=== PATIENT | female | born 1955 | race Caucasian/White ===

== ENCOUNTER 2016-03-25 23:46 | Emergency (ER) | payer SELFPAY ==
[~2016-03-25] VITALS: Ht 193 cm; Wt 78.0 kg
[~2016-03-25 23:46] MED LIST: CARI350T29 PO; FLUT16SP17 NASAL; GEMF600T60 PO; HYDR-902 PO; LEVO750T25 PO; PANT40TA4 PO; PRED20 PO
[2016-03-25 23:56] VITALS: Ht 193 cm; Wt 78.0 kg
[2016-03-26] MEDS ORDERED: HYDR-906 PO (19:42)
[2016-03-26] MEDS ORDERED: IBUP800T25 PO (19:42)
[2016-03-26] MEDS ORDERED: NITR-58 PO (19:43)
== END 2016-03-26 03:52 | disposition left against medical advice (07) ==
LOC: E/R 23:46
DX: Z53.21 Procedure and treatment not carried out due to patient leaving prior to being seen by health care provider (principal)

== ENCOUNTER 2016-03-26 16:11 | Emergency (ER) | payer OTHER ==
[~2016-03-26] VITALS: Ht 157.5 cm; Wt 74.0 kg
[2016-03-26 16:12] VITALS: Ht 157.5 cm; Wt 74.0 kg
[2016-03-26] MEDS ORDERED: HYDROmorphONE 1 MG/ML SYG IV STA ×2 (16:43→20:03)
--- NOTE | 2016-03-26 17:44 | ERD ---
ER Documentation Chief Complaint Date/Time DATE: 03/26/16 TIME: 17:40 Chief Complaint pt bib self with c/o right arm pain x 3 days HPI This is a 60-year-old female presenting to the emergency department for right arm pain 1 week. Patient states she has a burning type sensation to right shoulder that radiates upward to neck and down towards right forearm. Patient also states she is having chest pain and palpitations. No history of acute ME or stroke. Denies difficulty breathing or shortness of breath. Denies back pain. Patient states she went to her primary care doctor who told her she might have a mass in her arm or fibromyalgia. Patient has history of breast cancer and required a left breast mastectomy and chemotherapy. Denies weakness or fatigue. No fevers or chills. Denies neck stiffness. No rashes. No laceration or erythema to arm. No injury or fall. No head trauma or head injury. No recent surgery. Patient requesting Dilaudid for pain and states she is allergic to morphine. ROS All systems reviewed and are negative except as per history of present illness. Medications Home Meds Active Scripts Nitrofurantoin Monohyd Macrocr* (Macrobid*) 100 Mg Capsr, 100 MG PO BID for 5 Days, CAP Prov:LAUREN ALANIZ NP 03/26/16 Ibuprofen* (Motrin*) 800 Mg Tab, 800 MG PO Q6, #15 TAB Prov:LAUREN ALANIZ NP 03/26/16 Hydrocodone/Acetaminophen ([place] 5-325 Tablet) 1 Each Tablet, 1 TAB PO Q6H Y for PAIN, #7 TAB Prov:LAUREN ALANIZ NP 03/26/16 Levofloxacin* (Levaquin*) 750 Mg Tablet, 750 MG PO DAILY for 5 Days, TAB Prov:MIGUEL ANGEL ALEXIS 02/12/16 Prednisone (Prednisone) 20 Mg Tab, 40 MG PO DAILY for 7 Days, TAB Prov:MIGUEL ANGEL ALEXIS 02/12/16 Pantoprazole* (Pantoprazole*) 40 Mg Tablet.dr, 40 MG PO DAILY@06 for 30 Days, 3 Refills Prov:MIGUEL ANGEL ALEXIS 02/12/16 Fluticasone Propionate* (Fluticasone Propionate* Nasal) 50 Mcg/[place] - 16 Gm [place].susp, 1 SPRAY NASAL BID, #1 BOTTLE 2 Refills Prov:MIGUEL ANGEL ALEXIS 02/12/16 Reported Medications Carisoprodol* (Carisoprodol*) 350 Mg Tablet, 350 MG PO QHS Y for MUSCLE SPASMS, TAB 02/10/16 Hydrocodone/Acetaminophen ([place] 10-325 Tablet) 1 Each Tablet, 1 EACH PO Q6 Y for PAIN, TAB 02/10/16 Gemfibrozil* (Gemfibrozil*) 600 Mg Tablet, 600 MG PO BID, TAB 12/11/15 Allergies Allergies: Coded Allergies: morphine (Verified Allergy, Mild, rash, 03/26/16) PMhx/Soc History of Surgery: No Anesthesia Reaction: No Hx Neurological Disorder: No Hx Respiratory Disorders: Yes (SOB on exertion, O2 at 3L/min/NC) Hx Cardiac Disorders: No Hx Psychiatric Problems: No Hx Miscellaneous Medical Probl: Yes (breast ca s/p L mastectomy, s/p chemotherapy, insomia) Hx Alcohol Use: No Hx Substance Use: No Hx Tobacco Use: No Physical Exam Vitals Vital Signs Date Time Temp Pulse Resp B/P Pulse Ox O2 Delivery O2 Flow Rate FiO2 03/26/16 20:29 90 97 Room Air 03/26/16 20:04 98.4 72 18 124/72 99 Room Air 03/26/16 16:12 98.3 105 18 115/68 99 Physical Exam Const: Alert, [id number] Head: Atraumatic Eyes: Normal Conjunctiva ENT: Normal External Ears, Nose and Mouth. Neck: Full range of motion..~ No meningismus. Resp: Clear to auscultation bilaterally. No wheezing, rhonchi or crackles. Cardio: Regular rate and rhythm, no murmurs Abd: Soft, non tender, non distended. Normal bowel sounds Skin: No petechiae or rashes Back: No midline or flank tenderness Ext: No cyanosis, or edema Neur: Awake and alert Psych: Normal Mood and Affect Result Diagram: 03/26/16 1720 03/26/16 1720 Results 24 hrs Laboratory Tests Test 03/26/16 17:20 03/26/16 19:24 03/26/16 19:35 Activated Partial Thromboplast Time 26.2Sec Anion Gap 15 Basophils # 0.010^3/ul Basophils % 0.5% Blood Morphology Comment Blood Urea Nitrogen 18mg/dl Calcium Level 9.1mg/dl Carbon Dioxide Level 27mmol/L Chloride Level 104mmol/L Creatinine 0.78mg/dl Eosinophils # 0.110^3/ul Eosinophils % 1.8% Glucose Level 88mg/dl Hematocrit 38.4% Hemoglobin 12.8g/dl INR International Normalized Ratio 1.03 Lymphocytes # 1.610^3/ul Lymphocytes % 28.7% Mean Corpuscular Hemoglobin 28.3pg Mean Corpuscular Hemoglobin Concent 33.4g/dl Mean Corpuscular Volume 84.8fl Mean Platelet Volume 9.0fl Monocytes # 0.410^3/ul Monocytes % 6.6% Neutrophils # 3.510^3/ul Neutrophils % 62.4% Nucleated Red Blood Cells # 0.010^3/ul Nucleated Red Blood Cells % 0.0/100WBC Platelet Count 08427^3/UL Potassium Level 3.7mmol/L Prothrombin Time 13.5Sec Prothrombin Time Ratio 1.1 Red Blood Count 4.5310^6/ul Red Cell Distribution Width 14.4% Sodium Level 142mmol/L Troponin I < 0.012ng/ml White Blood Count 5.610^3/ul Bedside Urine Blood Trace-intact 1+ Bedside Urine Glucose (UA) Negative Negative Bedside Urine Ketones (LAB) Negative Negative Bedside Urine Leukocyte Esterase (L 1+ 1+ Bedside Urine Nitrite (LAB) Negative Negative Bedside Urine Protein (LAB) 1+ 1+ Bedside Urine pH (LAB) 5.5 5.5 Current Medications Medications (Trade) Dose Ordered Sig/Leslye Route PRN Reason Start Time Stop Time Status Last Admin Dose Admin Hydromorphone HCl (Dilaudid) 0.5 mg ONCE STAT IV 03/26/16 16:43 03/26/16 16:44 DC 03/26/16 17:06 Hydromorphone HCl (Dilaudid) 0.5 mg ONCE STAT IV 03/26/16 20:03 03/26/16 20:04 DC 03/26/16 20:08 Procedures/MDM ED COURSE: The patient was stable throughout ED course. I kept the patient and/or family informed of laboratory and diagnostic imaging results throughout the ED course. Laboratory CBC unremarkable CMP unremarkable Troponin <0.012 PT 13.5 PTT 26.2 INR 1.03 Urine dip 1+ protein, trace blood, 1+ leukocyte esterase Imaging Chest x-ray Patient: ADRIÁN CHU : 1955 Age: 60 Sex: F MR #: [id number] DOS: 03/26/161634 Ordering MD: LAUREN ALANIZ NP Location: E/R Room/Bed: PROCEDURE: XR Chest. CLINICAL INDICATION: Chest pain. Arm pain TECHNIQUE: Portable AP erect view of the chest was obtained. COMPARISON: 02/10/2016 FINDINGS: The cardiomediastinal silhouette is within normal limits. The lungs are clear with improved aeration of the lung bases compared to the prior exam. There is no evidence for pleural effusion, pneumothorax or pulmonary vascular congestion. The osseous structures are intact with no evidence for acute abnormality. Multiple clips along the left chest wall and axilla are again noted RPTAT:HJJR IMPRESSION: No evidence for acute intrathoracic pathology with interval resolution of bibasilar subsegmental atelectasis compared to 02/10/2016. X-ray right shoulder Patient: ADRIÁN CHU : 1955 Age: 60 Sex: F MR #: [id number] DOS: 03/26/161634 Ordering MD: LAUREN ALANIZ NP Location: E/R Room/Bed: PROCEDURE: XR shoulder. CLINICAL INDICATION: Pain TECHNIQUE: Three views of the right shoulder were performed. COMPARISON: None available. FINDINGS: There is normal mineralization and alignment. No fracture or osseous lesion is identified. Trace narrowing of the inferior acromioclavicular joint is present. There is minimal degenerative irregularity of the greater tuberosity. The glenohumeral joint appears intact. The soft tissues are unremarkable. RPTAT:HJJR IMPRESSION: 1. 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 2. No acute osseous abnormality of the right shoulder. X-ray cervical spine Patient: ADRIÁN CHU : 1955 Age: 60 Sex: F MR #: [id number] DOS: 03/26/165 Ordering MD: LAUREN ALANIZ NP Location: E/R Room/Bed: PROCEDURE: XR Cervical Spine. CLINICAL INDICATION: Cervical spine pain. TECHNIQUE: AP, lateral and odontoid views of the cervical spine were performed. The images were reviewed on a PACS workstation. COMPARISON: None available FINDINGS: There is 2 mm retrolisthesis of C4 on C5 and C5 on C6. There are small anterior osteophytes with moderate narrowing at C4-5, C5-6 and C6-7. The vertebral body heights are maintained. There is diffuse osteopenia. There is no evidence of fracture or dislocation. There is diffuse mild to moderate arthropathy. There is preservation of the remaining intervertebral disc spaces. There are no abnormal calcifications. The prevertebral soft tissues are normal. No radiopaque foreign bodies are identified. IMPRESSION: 1. Moderate to severe degenerative disc disease at C4-5, C5-6 and C6-7 with grade 1 retrolisthesis C4 on C5 and C5 on C6. 2. Diffuse mild to moderate facet spondylosis. 3. No evidence of acute fracture. EKG: As interpreted by Dr. De La Torre and myself Rate/Rhythm: Normal sinus rhythm with heart rate 89 bpm QRS, ST, T-waves: No changes consistent w/ acute ischemia Impression: No evidence of ischemia or arrhythmia MDM: This is a 60-year-old female presenting to the emergency department for right arm pain 1 week. Describes pain as burning sensation. Has limited flexion due to pain however full extension from shoulder on exam. EKG shows normal sinus rhythm with heart rate 89 bpm as interpreted by . Chest x-ray no evidence for acute intrathoracic pathology with interval resolution of bibasilar subsegmental atelectasis compared to 02/10/2016. Shoulder x-ray trace degenerative osteoarthrosis of the inferior acromioclavicular joint and degenerative irregularity of the greater tuberosity. No acute osseous abnormality of the right shoulder. Cervical spine x-ray moderate to severe degenerative disc disease at C4-5, C5-6 and C6-7 with grade 1 retrolisthesis C4 on C5 and C5 on C6. Diffuse mild to moderate facet spondylosis. No evidence of acute fracture. Low suspicion for acute ME, non-STEMI, lethal arrhythmia, septic arthritis, abscess or sepsis. Patient is appropriate for outpatient management and will be discharged with prescriptions for ibuprofen, Doss and Macrobid. Instructed patient to follow up with PCP in the next 24-48 hours for reassessment. Return to ED for any new or worsening symptoms. Patient verbalizes understanding. All questions answered at discharge. Departure Diagnosis: Primary Impression: Pain of right arm Condition: Stable LAUREN ALANIZ NP Mar 26, 2016 17:44
[2016-03-26 17:56] LABS: BASOPHILS % 0.5 % (0.0-2.0); EOSINOPHILS # 0.1 10^3/ul (0.0-0.5); EOSINOPHILS % 1.8 % (0.0-7.0); HEMATOCRIT 38.4 % (37.0-47.0); HEMOGLOBIN 12.8 g/dl (12.0-16.0); LYMPHOCYTES # 1.6 10^3/ul (0.8-2.9); LYMPHOCYTES % 28.7 % (15.0-51.0); MEAN CORPUSCULAR HEMOGLOBIN 28.3 pg (29.0-33.0); MEAN CORPUSCULAR HGB CONC 33.4 g/dl (32.0-37.0); MEAN CORPUSCULAR VOLUME 84.8 fl (82.0-101.0); MONOCYTE # 0.4 10^3/ul (0.3-0.9); MONOCYTES % 6.6 % (0.0-11.0); NEUTROPHIL # 3.5 10^3/ul (1.6-7.5); NEUTROPHILS % 62.4 % (39.0-77.0); PLATELET COUNT 312 10^3/UL (140-440); RED BLOOD COUNT 4.53 10^6/ul (4.20-5.40); RED CELL DISTRIBUTION WIDTH 14.4 % (11.5-14.5); UNCORRECTED WBC 5.6 10^3/ul (4.8-10.8); WHITE BLOOD COUNT 5.6 10^3/ul (4.8-10.8)
[2016-03-26 18:07] LABS: CONDITION 1
[2016-03-26 18:09] LABS: INR 1.03; PROTIME 13.5 Sec (12.2-14.2); PT RATIO 1.1
[2016-03-26 18:10] LABS: CHLORIDE 104 mmol/L (97-110); PARTIAL THROMBOPLASTIN TIME 26.2 Sec (25.0-35.0)
[2016-03-26 18:11] LABS: POTASSIUM 3.7 mmol/L (3.5-5.1); SODIUM 142 mmol/L (135-144)
[2016-03-26 18:14] LABS: ANION GAP 15 (8-16); BLOOD UREA NITROGEN 18 mg/dl (7-20); CARBON DIOXIDE 27 mmol/L (21-31); CREATININE 0.78 mg/dl (0.44-1.00); GLUCOSE 88 mg/dl (70-220)
[2016-03-26 18:15] LABS: CALCIUM 9.1 mg/dl (8.4-10.2)
[2016-03-26 18:30] LABS: TROPONIN-I < 0.012 ng/ml (0.00-0.12)
--- NOTE | 2016-03-26 19:19 | RADRPT ---
PROCEDURE: XR Chest. CLINICAL INDICATION: Chest pain. Arm pain TECHNIQUE: Portable AP erect view of the chest was obtained. COMPARISON: 02/10/2016 FINDINGS: The cardiomediastinal silhouette is within normal limits. The lungs are clear with improved aeratio n of the lung bases compared to the prior exam. There is no evidence for pleural effusion, pneumoth orax or pulmonary vascular congestion. The osseous structures are intact with no evidence for acute abnormality. Multiple clips along the left chest wall and axilla are again noted RPTAT:HJJR IMPRESSION: No evidence for acute intrathoracic pathology with interval resolution of bibasilar subsegmental ate lectasis compared to 02/10/2016. Physician Mandie Date Time Electronically viewed and signed by Physician Mandie on 03/26/2016 19:18 JR/
--- NOTE | 2016-03-26 19:20 | RADRPT ---
PROCEDURE: XR shoulder. CLINICAL INDICATION: Pain TECHNIQUE: Three views of the right shoulder were performed. COMPARISON: None available. FINDINGS: There is normal mineralization and alignment. No fracture or osseous lesion is identified. Trace zion rowing of the inferior acromioclavicular joint is present. There is minimal degenerative irregulari ty of the greater tuberosity. The glenohumeral joint appears intact. The soft tissues are unremarka ble. RPTAT:HJJR IMPRESSION: 1. Trace degenerative osteoarthrosis of the inferior acromioclavicular joint and degenerative irregu larity of the greater tuberosity. 2. No acute osseous abnormality of the right shoulder. Physician Mandie Date Time Electronically viewed and signed by Physician Mandie on 03/26/2016 19:20 /
--- NOTE | 2016-03-26 19:21 | RADRPT ---
PROCEDURE: XR Cervical Spine. CLINICAL INDICATION: Cervical spine pain. TECHNIQUE: AP, lateral and odontoid views of the cervical spine were performed. The images were re viewed on a PACS workstation. COMPARISON: None available FINDINGS: There is 2 mm retrolisthesis of C4 on C5 and C5 on C6. There are small anterior osteophytes with mo derate narrowing at C4-5, C5-6 and C6-7. The vertebral body heights are maintained. There is diffu se osteopenia. There is no evidence of fracture or dislocation. There is diffuse mild to moderate ar thropathy. There is preservation of the remaining intervertebral disc spaces. There are no abnormal calcifications. The prevertebral soft tissues are normal. No radiopaque foreign bodies are identifie d. IMPRESSION: 1. Moderate to severe degenerative disc disease at C4-5, C5-6 and C6-7 with grade 1 retrolisthesis C4 on C5 and C5 on C6. 2. Diffuse mild to moderate facet spondylosis. 3. No evidence of acute fracture. RPTAT: HGAS .Donald Pleitez MD, Date Time Electronically viewed and signed by .Donald Pleitez MD, on 03/26/2016 19:20 .S/
[2016-03-26 19:23] LABS: URINE BLOOD (Dip) POC Trace-intact (NEGATIVE)
[2016-03-26 19:33] LABS: URINE BLOOD (Dip) POC 1+ (NEGATIVE)
[2016-03-26] MEDS ORDERED: HYDR-906 PO (19:42)
[2016-03-26] MEDS ORDERED: IBUP800T25 PO (19:42)
[2016-03-26] MEDS ORDERED: NITR-58 PO (19:43)
[2016-03-26 20:04] VITALS: BP 124/72; RESP 18; TEMP 98.4
[2016-03-26 20:29] VITALS: PULSE 90
== END 2016-03-26 20:29 | disposition home or self-care (01) ==
LOC: E/R 16:11
DX: M79.601 Pain in right arm (principal); Z85.3 Personal history of malignant neoplasm of breast
CPT/HCPCS: 36415; 71010; 72040; 73030; 80048; 81003; 84484; 85025; 85610; 85730; 93005; 96374; 96376; J1170; Z7502

== ENCOUNTER 2016-04-22 17:46 | Inpatient (IN) | payer OTHER ==
[~2016-04-22] VITALS: Ht 160 cm; Wt 79.3 kg
[2016-04-22] MEDS: SOD CHLORIDE 0.45% 1,000 ML IV SCH (00:30)
[~2016-04-22 17:46] MED LIST changes: +HYDR-906 PO; +IBUP800T25 PO; +NITR-58 PO
[2016-04-22] MEDS ORDERED: ONDANSETRON 4 MG INJ IV STA (20:11)
[2016-04-22] MEDS ORDERED: HYDROmorphONE 1 MG/ML SYG IV STA (20:11)
[2016-04-22 20:54] LABS: ADD UMIC YES; URINE BILIRUBIN (Dip) NEGATIVE (NEGATIVE); URINE BLOOD (Dip) TRACE (NEGATIVE); URINE COLOR LT. YELLOW (YELLOW); URINE GLUCOSE (Dip) NEGATIVE (NEGATIVE); URINE KETONES (Dip) TRACE (NEGATIVE); URINE LEUKOCYTE ESTERASE (Dip) TRACE (NEGATIVE); URINE NITRITE (Dip) NEGATIVE (NEGATIVE); URINE TOTAL PROTEIN (Dip) NEGATIVE (NEGATIVE); URINE UROBILINOGEN (Dip) 0.2 E.U./dL (0.1-1.0)
--- NOTE | 2016-04-22 20:59 | RADRPT ---
PROCEDURE: CT brain without contrast CLINICAL INDICATION: Weakness. Possible stroke. TECHNIQUE: A CT of the brain was performed utilizing axial sections from the skull base through th e vertex without contrast. Sagittal and coronal images were also reformatted. The exam CTDIvol = 39. 49 mGy and DLP = 554.95 mGy-cm. COMPARISON: None available FINDINGS: No acute intracranial hemorrhage is identified. There is no mass effect or midline shift. No extra -axial fluid collection is seen. The ventricles and sulci are within normal limits for size and con figuration. The density of the brain is within normal limits. Sun-white differentiation is preser alicia. The osseous structures are unremarkable. The mastoid air cells and visualized paranasal sinuses are clear. RPTAT:HJJR IMPRESSION: Unremarkable noncontrast CT of the brain. Physician Mandie Date Time Electronically viewed and signed by Physician Mandie on 04/22/2016 20:59 /
[2016-04-22 21:03] LABS: SQUAMOUS EPITHELIAL CELL,UR FEW; URINE RBCS 0-2 /HPF (0)
[2016-04-22] MEDS ORDERED: IBUP800T25 PO (21:06)
[2016-04-22] MEDS ORDERED: DICL75TA2 PO (21:07)
[2016-04-22] MEDS ORDERED: ZOLP10TA5 PO (21:07)
[2016-04-22] MEDS ORDERED: ALPR0.5T6 PO (21:08)
[2016-04-22 21:15] LABS: BARBITURATES Negative (NEGATIVE)
--- NOTE | 2016-04-22 21:15 | RADRPT ---
PROCEDURE: XR Chest. CLINICAL INDICATION: Possible stroke TECHNIQUE: Single frontal view of the chest was obtained COMPARISON: 03/26/2016 FINDINGS: The heart and mediastinum are within normal limits. The lungs are clear. There is no pleural effusion or pneumothorax. IMPRESSION: No acute disease. RPTAT: [facility] Physician Jose Alfredo Date Time Electronically viewed and signed by Analy Cannon Physician on 04/22/2016 21:15 RS/
[2016-04-22 21:16] LABS: BENZODIAZEPINES Positive (NEGATIVE)
[2016-04-22 21:17] LABS: CANNABINOIDS Negative (NEGATIVE); COCAINE Negative (NEGATIVE)
[2016-04-22 21:18] LABS: OPIATES Negative (NEGATIVE)
[2016-04-22 21:19] LABS: ADD SCAN DIFF NO
[2016-04-22 21:27] LABS: BASOPHIL # 0.1 10^3/ul (0.0-0.1); BASOPHILS % 0.9 % (0.0-2.0); EOSINOPHILS # 0.2 10^3/ul (0.0-0.5); EOSINOPHILS % 3.2 % (0.0-7.0); HEMATOCRIT 46.3 % (37.0-47.0); HEMOGLOBIN 14.4 g/dl (12.0-16.0); LYMPHOCYTES # 2.3 10^3/ul (0.8-2.9); LYMPHOCYTES % 33.1 % (15.0-51.0); MEAN CORPUSCULAR HEMOGLOBIN 27.8 pg (29.0-33.0); MEAN CORPUSCULAR HGB CONC 31.1 g/dl (32.0-37.0); MEAN CORPUSCULAR VOLUME 89.4 fl (82.0-101.0); MEAN PLATELET VOLUME 10.1 fl (7.4-10.4); MONOCYTE # 0.4 10^3/ul (0.3-0.9); MONOCYTES % 5.3 % (0.0-11.0); NEUTROPHIL # 3.9 10^3/ul (1.6-7.5); NEUTROPHILS % 57.1 % (39.0-77.0); PLATELET COUNT 362 10^3/UL (140-415); RED BLOOD COUNT 5.18 10^6/ul (4.20-5.40); RED CELL DISTRIBUTION WIDTH 14.7 % (11.5-14.5); WHITE BLOOD COUNT 6.8 10^3/ul (4.8-10.8)
[2016-04-22 21:30] LABS: CHLORIDE 106 mmol/L (97-110); POTASSIUM 3.4 mmol/L (3.5-5.1); SODIUM 148 mmol/L (135-144)
[2016-04-22] MEDS ORDERED: ASPIRIN 325 MG TAB PO ONE (21:30)
[2016-04-22] MEDS ORDERED: ONDANSETRON 4 MG INJ IV PRN ×2 (21:30→22:30)
[2016-04-22] MEDS ORDERED: ACETAMINOPHEN 325 MG TAB PO PRN ×2 (21:30→22:30)
[2016-04-22 21:31] LABS: INR 0.9; PARTIAL THROMBOPLASTIN TIME 24.6 Sec (25.0-35.0); PROTIME 12.1 Sec (12.2-14.2); PT RATIO 0.9
[2016-04-22 21:33] LABS: ANION GAP 23 (8-16); BLOOD UREA NITROGEN 25 mg/dl (7-20); CARBON DIOXIDE 22 mmol/L (21-31); CREATININE 0.72 mg/dl (0.44-1.00); GLUCOSE 80 mg/dl (70-220)
[2016-04-22 21:34] LABS: CALCIUM 9.6 mg/dl (8.4-10.2)
[2016-04-22 21:45] LABS: TROPONIN-I < 0.012 ng/ml (0.00-0.12)
[2016-04-22] MEDS ORDERED: MAGNESIUM HYDROXIDE 30ML CUP PO PRN (22:30)
[2016-04-22] MEDS ORDERED: NACL 0.9% 3 ML SYG IV SCH (22:30)
--- NOTE | 2016-04-22 22:44 | ERA ---
ER Documentation Chief Complaint Date/Time DATE: 04/22/16 TIME: 22:42 Chief Complaint RT SIDED WEAKNESS & FACIAL DROOP SINCE LAST NIGHT HPI Patient is a 60-year-old female with breast cancer presents with right-sided facial droop and right arm weakness. The patient has a right-sided facial droop. Her symptoms started a couple days ago. 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 A friend told her to go to the ER today. She does complain of headache and right arm pain. Upon review of old medical records this is the patient's fifth visit to the ER since November 2015. ROS All systems reviewed and are negative except as per history of present illness. Medications Home Meds Active Scripts Pantoprazole* (Pantoprazole*) 40 Mg Tablet., 40 MG PO DAILY@06 for 30 Days, 3 Refills Prov:MIGUEL ANGEL ALEXIS 02/12/16 Reported Medications Alprazolam* (Alprazolam*) 0.5 Mg Tablet, 0.5 MG PO BID Y for ANXIETY, TAB 04/22/16 Zolpidem Tartrate* (Zolpidem Tartrate*) 10 Mg Tablet, 10 MG PO QHS Y for INSOMNIA, #30 TAB 04/22/16 Diclofenac Sodium* (Diclofenac Sodium*) 75 Mg Tablet., 75 MG PO Q12, #60 TAB 04/22/16 Ibuprofen* (Ibuprofen*) 800 Mg Tab, 800 MG PO Q6H Y for PAIN, TAB 04/22/16 Carisoprodol* (Carisoprodol*) 350 Mg Tablet, 350 MG PO BID Y for MUSCLE SPASMS, TAB 02/10/16 Gemfibrozil* (Gemfibrozil*) 600 Mg Tablet, 600 MG PO BID, TAB 12/11/15 Discontinued Reported Medications Hydrocodone/Acetaminophen ([place] 10-325 Tablet) 1 Each Tablet, 1 EACH PO Q6 Y for PAIN, TAB 02/10/16 Discontinued Scripts Nitrofurantoin Monohyd Macrocr* (Macrobid*) 100 Mg Capsr, 100 MG PO BID for 5 Days, CAP Prov:LAUREN ALANIZ NP 03/26/16 Ibuprofen* (Motrin*) 800 Mg Tab, 800 MG PO Q6, #15 TAB Prov:LAUREN ALANIZ NP 03/26/16 Hydrocodone/Acetaminophen ([place] 5-325 Tablet) 1 Each Tablet, 1 TAB PO Q6H Y for PAIN, #7 TAB Prov:LAUREN ALANIZ NP 03/26/16 Levofloxacin* (Levaquin*) 750 Mg Tablet, 750 MG PO DAILY for 5 Days, TAB Prov:MIGUEL ANGEL ALEXIS 02/12/16 Prednisone (Prednisone) 20 Mg Tab, 40 MG PO DAILY for 7 Days, TAB Prov:MIGUEL ANGEL ALEXIS 02/12/16 Fluticasone Propionate* (Fluticasone Propionate* Nasal) 50 Mcg/[place] - 16 Gm [place].susp, 1 SPRAY NASAL BID, #1 BOTTLE 2 Refills Prov:MIGUEL ANGEL ALEXIS 02/12/16 Allergies Allergies: Coded Allergies: morphine (Verified Allergy, Mild, rash, 04/22/16) PMhx/Soc History of Surgery: No Anesthesia Reaction: No Hx Neurological Disorder: No Hx Respiratory Disorders: No Hx Cardiac Disorders: No Hx Psychiatric Problems: No Hx Miscellaneous Medical Probl: Yes (breast ca s/p L mastectomy, s/p chemotherapy, insomia) Hx Alcohol Use: No Hx Substance Use: No Hx Tobacco Use: No Smoking Status: Never smoker FmHx Family History: No diabetes Physical Exam Vitals Vital Signs Date Time Temp Pulse Resp B/P Pulse Ox O2 Delivery O2 Flow Rate FiO2 04/22/16 22:34 83 16 113/74 97 Room Air 04/22/16 20:37 Nasal Cannula 2 04/22/16 17:49 98.1 96 16 106/66 94 Physical Exam Const: Mild distress secondary to pain Head: Atraumatic Eyes: Normal Conjunctiva ENT: Normal External Ears, Nose and Mouth. Neck: Full range of motion..~ No meningismus. Resp: Clear to auscultation bilaterally Cardio: Regular rate and rhythm, no murmurs Abd: Soft, non tender, non distended. 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 YELLOW Urine Glucose NEGATIVE% Urine Hemoglobin TRACE Urine Ketones TRACE Urine Leukocyte Esterase TRACE Urine Microscopic RBC 0-2/HPF Urine Microscopic WBC 0-2/HPF Urine Nitrite NEGATIVE Urine Opiates Screen Negative Urine Specific [place] 1.020 Urine Squamous Epithelial Cells FEW Urine Total Protein NEGATIVE Urine Urobilinogen 0.2 E.U./dL Urine pH 5.5 Bedside Glucose 69mg/dL Activated Partial Thromboplast Time 24.6Sec Anion Gap 23 Basophils # 0.110^3/ul Basophils % 0.9% Blood Urea Nitrogen 25mg/dl Calcium Level 9.6mg/dl Carbon Dioxide Level 22mmol/L Chloride Level 106mmol/L Creatinine 0.72mg/dl Eosinophils # 0.210^3/ul Eosinophils % 3.2% Glucose Level 80mg/dl Hematocrit 46.3% Hemoglobin 14.4g/dl Hemoglobin A1c 5.6% INR International Normalized Ratio 0.90 Lymphocytes # 2.310^3/ul Lymphocytes % 33.1% Mean Corpuscular Hemoglobin 27.8pg Mean Corpuscular Hemoglobin Concent 31.1g/dl Mean Corpuscular Volume 89.4fl Mean Platelet Volume 10.1fl Monocytes # 0.410^3/ul Monocytes % 5.3% Neutrophils # 3.910^3/ul Neutrophils % 57.1% Nucleated Red Blood Cells # 0.010^3/ul Nucleated Red Blood Cells % 0.0/100WBC Platelet Count 24407^3/UL Potassium Level 3.4mmol/L Prothrombin Time 12.1Sec Prothrombin Time Ratio 0.9 Red Blood Count 5.1810^6/ul Red Cell Distribution Width 14.7% Sodium Level 148mmol/L Troponin I < 0.012ng/ml White Blood Count 6.810^3/ul Current Medications Medications (Trade) Dose Ordered Sig/Leslye Route PRN Reason Start Time Stop Time Status Last Admin Dose Admin Hydromorphone HCl (Dilaudid) 1 mg ONCE STAT IV 04/22/16 20:11 04/22/16 20:12 DC 04/22/16 20:21 Ondansetron HCl (Zofran Inj) 4 mg ONCE STAT IV 04/22/16 20:11 04/22/16 20:12 DC 04/22/16 20:21 Aspirin (Aspirin) 325 mg ONCE ONCE PO 04/22/16 21:30 04/22/16 21:31 DC 04/22/16 21:36 Ondansetron HCl (Zofran Inj) 4 mg ER BRIDGE PRN IV NAUSEA AND/OR VOMITING 04/22/16 21:30 04/23/16 21:29 Acetaminophen 650 mg 650 mg ER BRIDGE PRN PO MILD PAIN/FEVER 04/22/16 21:30 04/23/16 21:29 Sodium Chloride (1/2 NS) 1,000 ml @ 100 mls/hr Q10H IV 04/22/16 22:29 IV Flush (NS 3 ml) 3 ml PER PROTOCOL IV 04/22/16 22:30 Ondansetron HCl (Zofran Inj) 4 mg Q6H PRN IV NAUSEA AND/OR VOMITING 04/22/16 22:30 Aspirin (Aspirin) 81 mg DAILY PO 04/23/16 09:00 Acetaminophen (Tylenol Tab) 650 mg Q6H PRN PO PAIN LEVEL 1-3 OR FEVER 04/22/16 22:30 Magnesium Hydroxide (Milk Of Mag) 30 ml DAILY PRN PO CONSTIPATION 04/22/16 22:30 Pantoprazole (Protonix Tab) 40 mg DAILY@06 PO 04/23/16 06:00 Procedures/MDM EKG read by me: Rate/Rhythm: Regular rate and rhythm at a rate of 80 Intervals: Normal Impression: No evidence of ischemia or arrhythmia CT brain negative per radiology. Patient is a 60-year-old female presents with right-sided facial droop and right arm weakness. I am concerned for acute stroke. However she is outside the window for TPA. The patient had an NIH stroke scale and bedside swallow evaluation performed. She was given aspirin after CT brain was negative for bleed. I spoke with Dr. Zambrano from [employer] insurance as the patient has [employer] insurance. The patient will be admitted to a telemetry bed. I doubt intracranial hemorrhage or mass. Departure Diagnosis: Primary Impression: Stroke Qualified Code: I63.9 - Cerebrovascular accident (CVA), unspecified mechanism Additional Impression: Acute weakness Condition: ADRIANA Vargas MD Apr 22, 2016 22:44
[2016-04-22 23:52] VITALS: BP 104/58; PULSE 85; RESP 18
[2016-04-23] VITALS (11 sets, daily range): BP systolic 96–118; BP diastolic 54–65; PULSE 75–93; RESP 18–20; Ht 160 cm; Wt 79.3 kg
[2016-04-23] MEDS: ZOLPIDEM 5 MG TAB PO PRN ×2 (01:18→21:03)
[2016-04-23] MEDS: GABAPENTIN 300 MG CAP PO SCH ×3 (01:18→21:03)
[2016-04-23] MEDS: PANTOPRAZOLE (EC) 40 MG TAB PO SCH (06:28)
[2016-04-23 07:49] LABS: ADD SCAN DIFF NO
[2016-04-23 08:00] LABS: BASOPHIL # 0.1 10^3/ul (0.0-0.1); BASOPHILS % 1.1 % (0.0-2.0); EOSINOPHILS # 0.2 10^3/ul (0.0-0.5); EOSINOPHILS % 3.5 % (0.0-7.0); HEMATOCRIT 38.4 % (37.0-47.0); HEMOGLOBIN 11.8 g/dl (12.0-16.0); LYMPHOCYTES # 1.7 10^3/ul (0.8-2.9); LYMPHOCYTES % 36.5 % (15.0-51.0); MEAN CORPUSCULAR HEMOGLOBIN 27.3 pg (29.0-33.0); MEAN CORPUSCULAR HGB CONC 30.7 g/dl (32.0-37.0); MEAN CORPUSCULAR VOLUME 88.7 fl (82.0-101.0); MEAN PLATELET VOLUME 10.3 fl (7.4-10.4); MONOCYTE # 0.4 10^3/ul (0.3-0.9); NEUTROPHIL # 2.3 10^3/ul (1.6-7.5); NEUTROPHILS % 50.5 % (39.0-77.0); PLATELET COUNT 292 10^3/UL (140-415); RED BLOOD COUNT 4.33 10^6/ul (4.20-5.40); RED CELL DISTRIBUTION WIDTH 14.6 % (11.5-14.5); WHITE BLOOD COUNT 4.6 10^3/ul (4.8-10.8)
[2016-04-23 08:01] LABS: ALBUMIN 3.5 g/dl (3.3-4.9)
[2016-04-23 08:02] LABS: POTASSIUM 3.5 mmol/L (3.5-5.1)
[2016-04-23 08:03] LABS: CREATININE 0.78 mg/dl (0.44-1.00)
[2016-04-23 08:04] LABS: ALBUMIN/GLOBULIN RATIO 1.25; BILIRUBIN,INDIRECT 0.2 mg/dl (0-1.1); BILIRUBIN,TOTAL 0.2 mg/dl (0.2-1.3); TOTAL PROTEIN 6.3 g/dl (6.1-8.1)
[2016-04-23 08:05] LABS: CALCIUM 8.7 mg/dl (8.4-10.2)
[2016-04-23] MEDS: ASPIRIN 81 MG TAB PO SCH (08:59)
[2016-04-23] MEDS: SOD CHLORIDE 0.45% 1,000 ML IV SCH ×2 (09:07→18:29)
[2016-04-23] MEDS ORDERED: POTASSIUM CHLORIDE (SR) 20 MEQ TAB PO STA (10:58)
--- NOTE | 2016-04-23 12:10 | HP ---
DATE OF ADMISSION: 04/22/2016 PRIMARY CARE PHYSICIAN: John Whatley MD CHIEF COMPLAINT ON ADMISSION: Right arm pain and right facial droop. HISTORY OF PRESENT ILLNESS: This is a 60-year-old female with history of asthma/reactive airway dis ease, breast cancer survivor, status post left mastectomy and chemotherapy in 2009, who presented to the emergency department with complaint of right arm pain and weakness and also right facial droop. The patient reports that she has been doing fairly well. She has chronic neck pain and apparently some mild right arm discomfort on and off. This is since a fall approximately a year ago. She jus t came back from [place] 5 days ago and since then has been experiencing severe right arm pain and also neck pain. The patient reports that she did not notice any right facial droop until she was o ut with some friends yesterday and they actually mentioned to her that she was drooping on the right side with saliva coming out. She was taken to the emergency department at that time. According to the ER physician, Dr. Akers, the patient did have significant right facial droop. She was also no margaux to have some mild weakness of the right arm. She is complaining mainly of severe pain down the right arm, shooting all the way down to her fingers. It seems to be starting around the right side of her neck, however. She also complains of headaches. She is noted to have a mild right facial dr oop. She denies any fevers, chills, nausea or vomiting. She reports imbalance that has been going on for the past 5 days and generalized weakness. She denies any recent fall. She denies any recent infection or acute illness. She is able to ambulate, just off balance. She denies any chest pain. She denies any shortness of breath. She denies any diarrhea or genitourinary complaints. She rep orts occasional constipation. In the emergency department, she had a CAT scan of the brain which wa s within normal, along with an EKG which is also within normal. She is admitted to a telemetry bed currently and awaiting MRI of the brain and MRI of the cervical spine. ALLERGIES: ALLERGY TO MORPHINE. PAST MEDICAL HISTORY: 1. Asthma/reactive airway disease. 2. Breast cancer diagnosed in 2009, status post chemotherapy as of 2010. 3. Insomnia. 4. Chronic mild right upper extremity pain since a fall approximately a year ago. PAST SURGICAL HISTORY: Status post left mastectomy in 2009 for breast cancer. SOCIAL HISTORY: The patient denies any alcohol, tobacco or IV drug use. REVIEW OF SYSTEMS: As per HPI. OUTPATIENT MEDICATIONS: 1. Soma 350 mg p.o. b.i.d. p.r.n. muscle spasms. 2. Gemfibrozil 600 mg p.o. b.i.d. 3. Alprazolam 0.5 mg p.o. b.i.d. p.r.n. anxiety. 4. Diclofenac sodium 75 mg p.o. q.12h. 5. Ibuprofen 800 mg p.o. q.6h. p.r.n. pain. 6. Ambien 10 mg p.o. at bedtime p.r.n. insomnia. 7. Protonix 40 mg p.o. daily. PHYSICAL EXAMINATION: VITAL SIGNS: Temperature is 98.2, heart rate of 75 sinus rhythm, respiratory rate of 18, blood pres sure 96/54. The patient is satting 94% on room air. GENERAL: She is alert and oriented x4. She is in no acute distress. She is lying in bed comfortab ly, on the phone. HEENT: Pupils are equally round and reactive to light. Extraocular muscles are intact. Anicteric sclerae. She is noted to have a mild right facial droop. NECK: She is complaining of neck pain. No JVD, no thyromegaly noted. HEART: Regular rate and rhythm. No murmur, rubs, or gallops. LUNGS: Clear to auscultation bilaterally. ABDOMEN: Soft, nontender, nondistended. Bowel sounds are present. EXTREMITIES: No edema, clubbing or cyanosis. NEUROLOGIC: Muscle strength is actually 5/5 on my exam; however, the patient does complain of pain down her right arm and around her right side neck during exam. Sensation is intact. Gait is not te sted. Physical therapy will be ordered. LABORATORY DATA: White blood cell count is 4.6, hemoglobin 11.8, hematocrit 38.4, platelet count of 292. Chemistry with a sodium of 143, potassium 3.5, chloride 106, bicarbonate 26, BUN 27, creatini ne 0.78, glucose of 88. Hemoglobin A1c is 5.6. Calcium 8.7, magnesium 2.1. Liver function testing is within normal. TSH is 1.58. Fasting lipid panel will be added. Urine toxicology screen is pos itive for benzodiazepine. Urinalysis shows trace leukocyte esterase. EKG again showing sinus rhythm 74 beats per minute, no acute ST or T wave abnormalities. DIAGNOSTIC DATA: 1. CAT scan of the brain, noncontrast, is unremarkable. 2. Chest x-ray is also unremarkable with no acute disease. 3. MRI brain and MRI cervical spine are pending currently. ASSESSMENT AND PLAN: This is a 60-year-old female with: 1. Right upper extremity weakness reported. She claims that she drops things easily and also right upper extremity pain. This is more consistent with possible neuropathy that may be related to cerv ical spine radiculopathy. MRI of the cervical spine is pending. She does have a mild facial droop. Therefore, MRI of the brain is pending, knowing her history of breast cancer. A 2D echo has been ordered as part of rule out cerebrovascular accident. We will add a fasting lipid panel. Her hemog lobin A1c is within normal. Blood pressure is stable. 2. Asthma, reactive airway disease. Her chest x-ray is within normal. Respiratory status is stabl e. We will continue to monitor. 3. Chronic pain. She is on Soma as needed. 4. Hyperlipidemia. Continue gemfibrozil. 5. Anxiety disorder. Continue alprazolam p.r.n. 6. Insomnia. Continue Ambien p.r.n. 7. Previous history of breast cancer, status post chemotherapy and left mastectomy. 8. Prophylaxis. Continue Protonix for GI prophylaxis. Sequential compression devices to lower ext remities for deep vein thrombosis prophylaxis. DISPOSITION: The patient's MRI of the brain and the cervical spine are pending at this point. We w ill change her admission to observation admission for now pending MRI results. Dictated By: MIGUEL ANGEL VILLASEÑOR/TAYLOR Conf#: [id number] DID#: [id number]
[2016-04-23] MEDS: MAGNESIUM HYDROXIDE 30ML CUP PO PRN ×3 (12:33→21:03)
[2016-04-23] MEDS: HYDROmorphONE 1 MG/ML SYG IV PRN ×2 (12:39→19:12)
--- NOTE | 2016-04-23 15:27 | RADRPT ---
PROCEDURE: MRI Brain without contrast. CLINICAL INDICATION: CVA, right arm weakness and pain. TECHNIQUE: An MRI of the brain was performed utilizing the following sequences: Sagittal and axial T1 weighted, axial T2 weighted, axial diffusion weighted with ADC mapping, coronal GRE, and axial F LAIR. COMPARISON: Brain CT 04/22/2016. FINDINGS: No diffusion weighted abnormalities are seen to suggest the presence of acute ischemia or recent inf arct. No hypointense signal abnormalities are seen on the GRE images to suggest the presence of blo od degradation products. There is no evidence of intracranial hemorrhage, mass effect, or midline s hift. No extra-axial fluid collections are seen. The ventricles and sulci are mildly enlarged indica tive of volume loss. There are mild scattered foci of T2 FLAIR hyperintensity in the periventricular, deep, and subcortic al white matter, which are nonspecific in etiology but likely reflect chronic small vessel ischemic changes. No abnormal intracranial vascular flow void is noted. The visualized paranasal sinuses demonstrate m ild to moderate mucosal thickening or pronounced in ethmoid air cells and maxillary sinuses. IMPRESSION: 1. No acute intracranial hemorrhage, infarction or mass. 2. Mild chronic small vessel ischemic changes. 3. Mild generalized cerebral and cerebellar volume loss. 4. Mild to moderate paranasal sinus disease. RPTAT: HH .Ambika Varner MD, MD Date Time Electronically viewed and signed by .Ambika Varner MD, MD on 04/23/2016 15:27 .N/
--- NOTE | 2016-04-23 21:14 | RADRPT ---
PROCEDURE: MR cervical spine without contrast CLINICAL INDICATION: New onset right arm pain and weakness. Headaches and right shoulder pain TECHNIQUE: An MRI of the cervical spine was performed utilizing sagittal T1 weighted, sagittal T2 weighted, sagittal STIR, axial T2-weighted balance fast field echo and axial GRE. COMPARISON: X-ray 03/26/2016 FINDINGS: Vertebral bodies: Straightening of the normal cervical lordosis is demonstrated. Trace retrolisthe sis of 2 mm C4 relative to C5 and C5 with of the C6 is present. There is preservation of stature an d signal intensity at every level. Anterior spondylosis is most severe at C4-5 and C5-6, moderate a t C6-7 Cervical spinal cord: Normal in signal intensity and caliber at every level. The craniocervical ju nction region is intact. C2-3: The disk is normal in height. No disk bulge or herniation is identified. Moderate left and m ild right facet arthropathy is present with at most mild left foraminal stenosis the right foramen i s patent. There is no central canal stenosis the AP dimension of the canal approximate 11 mm. C3-4: The disk is normal in height. Trace 2 mm posterior disk bulge narrows the anterior subarachno id space but there is no central stenosis the AP dimension of the canal approximately 9 mm. The yue tral canal and foramina are patent. C4-5: Moderate loss of disk stature. An approximately 3 mm osteophyte and disk complex indents the anterior cord and contributes to mild central stenosis the AP dimension of the canal approximately 8 mm. Uncovertebral hypertrophy causes severe left and moderate to severe right foraminal stenosis, mild bilateral facet arthropathy is present. Mild ligamentum flavum hypertrophy is present. C5-6: Moderate loss of disk stature. Osteophyte and disk complex of approximately 4 mm effaces the anterior cord and there is lack of CSF on each side of the cord consistent with moderate to severe c entral stenosis the AP dimension of the canal approximately 5 mm. Uncovertebral hypertrophy causes severe bilateral foraminal stenosis. Mild facet arthropathy is present. Mild ligamentum flavum hyp ertrophy is present. C6-7: Moderate loss of disk stature. 2 mm osteophyte and disk complex narrows the anterior subarach noid space and causes mild central stenosis the AP dimension of the canal 8.7 mm. Uncovertebral hyp ertrophy causes severe left and moderate right foraminal stenosis. C7-T1: There is signal loss with mild loss of disk stature. No disk bulge or herniation is identifi ed. The central canal and foramina are patent. RPTAT:HJJR IMPRESSION: 1. Osteophyte and disk complex causes severe acquired central canal stenosis at C5-6 without signal alteration in the cervical spinal cord, uncovertebral hypertrophy causes severe bilateral narrowing at the C5-6 level. 2. Mild central canal stenosis caused by osteophyte and disk complex at C4-5 and C6-7 with uncovert ebral hypertrophy causing severe left greater than right C4-5 and C6-7 foraminal stenosis. 3. Reversal of the normal cervical lordosis may be from positioning but cannot exclude muscle spasm . Physician Mandie Date Time Electronically viewed and signed by Deven Coburn Physician on 04/23/2016 21:14 JR/
[2016-04-24] VITALS (8 sets, daily range): BP systolic 113–125; BP diastolic 59–63; PULSE 95–110; RESP 20
[2016-04-24] MEDS: HYDROmorphONE 1 MG/ML SYG IV PRN ×4 (01:15→17:28)
--- NOTE | 2016-04-24 02:25 | SP ---
DATE OF PROCEDURE: REFERRING PHYSICIAN: Dr. Zambrano. Thank you for asking me to see the patient with you. HISTORY OF PRESENT ILLNESS: The patient is a 60-year-old lady who has a past medical history of ast hma, breast cancer, insomnia. The patient presented to the emergency room with right upper arm numb ness and pain as well as right facial weakness for which the patient was admitted to [facility], which I got a call about her by her primary care doctor asking me to see her for more evaluation and treatment. MEDICATIOS: Upon admission, her current medications include: 1. Soma 350 mg twice a day. 2. Gemfibrozil 600 mg twice a day 3. Alprazolam 0.5 mg twice a day. 4. Diclofenac 75 mg once a day. 5. Ibuprofen 800 mg as needed. 6. Ambien 10 mg 1 at bedtime for insomnia. 7. Protonix 40 mg once a day. PAST MEDICAL HISTORY: As above, which includes asthma, breast cancer, insomnia. PHYSICAL EXAMINATION: GENERAL: On exam today, the patient is alert, awake, oriented to time, place, and person. Normal s peech and normal language. CRANIAL NERVES: Cranial nerve II: Pupils equal on both sides, reactive to light. Cranial nerves I II, IV, and : Extraocular muscles intact. No nystagmus. Cranial nerve V: Equal sensation to fa ce. Cranial nerve VII: Decreased nasolabial fold on the right side. Cranial nerve VIII: Equal he aring bilaterally. Cranial nerve X: . Cranial nerve XI: Elevates shoulder 5/5. Cranial ner ve XII: With straight tongue. MOTOR: Right upper extremity is 4+/5. Sensation glove and sock area for light touch and temp erature. COORDINATION: Kagvoe-ue-hqle test intact. HEART: Regular rate and rhythm. LUNGS: Equal breath sounds. ABDOMEN: Soft, relaxed, nondistended. No tenderness. ASSESSMENT AND PLAN 1. The patient is 60 years old with a past medical history of hyperlipidemia, possibility of underl chris stroke. We will follow up the patient with MRA to evaluate possible dolichoectasia or vascular abnormality, like aneurysm. We will follow up the patient with MRCP with and without contrast, jennifer laguna for posterior and arterial circulation for more evaluation and treatment. 2. History of chronic anxiety. Keep the patient on Xanax 0.5 mg twice a day as needed. 3. History of dyslipidemia. Keep the patient on Gemfibrozil 600 mg twice a day. 4. Insomnia. Keep the patient on Ambien once at night as needed. We will follow up the patient. Again, thank you for asking me to see the patient with you. Dictated By: JOS STEELE/TAYLOR Conf#: [id number] DID#: [id number]
[2016-04-24] MEDS: SOD CHLORIDE 0.45% 1,000 ML IV SCH ×2 (02:33→14:29)
[2016-04-24] MEDS: PANTOPRAZOLE (EC) 40 MG TAB PO SCH (06:53)
[2016-04-24] MEDS: GABAPENTIN 300 MG CAP PO SCH ×2 (08:37→20:36)
[2016-04-24] MEDS: MAGNESIUM HYDROXIDE 30ML CUP PO PRN (08:37)
[2016-04-24] MEDS: ASPIRIN 81 MG TAB PO SCH (08:37)
--- NOTE | 2016-04-24 10:24 | PN ---
Date/Time of Note Date/Time of Note DATE: 04/24/16 TIME: 10:00 Assessment/Plan VTE Prophylaxis VTE Prophylaxis Intervention: SCD's Lines/Catheters IV Catheter Type (from Nrsg): [place] [employer] line still needed: No Urinary Cath still in place: No Assessment/Plan Assessment/Plan ASSESSMENT AND PLAN: This is a 60-year-old female with: 1. Right upper extremity weakness reported. She claims that she drops things easily and also right upper extremity pain. This is more consistent with possible neuropathy that may be related to cervical spine radiculopathy. MRI of the cervical spine demonstrates: C4-5: Moderate loss of disk stature. An approximately 3 mm osteophyte and disk complex indents the anterior cord and contributes to mild central stenosis the AP dimension of the canal approximately 8 mm. Uncovertebral hypertrophy causes severe left and moderate to severe right foraminal stenosis, mild bilateral facet arthropathy is present. Mild ligamentum flavum hypertrophy is present. C5-6: Moderate loss of disk stature. Osteophyte and disk complex of approximately 4 mm effaces the anterior cord and there is lack of CSF on each side of the cord consistent with moderate to severe central stenosis the AP dimension of the canal approximately 5 mm. Uncovertebral hypertrophy causes severe bilateral foraminal stenosis. Mild facet arthropathy is present. Mild ligamentum flavum hypertrophy is present. Case reviewed with Dr. Lal over the phone and will start decadron for MRI neck findings. MRI of the brain is essentially WNL and no evidence of acute stroke, however, she does have a mild facial droop. A 2D echo has been ordered as part of rule out cerebrovascular accident. Blood pressure is stable. 2. Asthma, reactive airway disease. Her chest x-ray is within normal. Respiratory status is stable. We will continue to monitor. 3. Chronic pain. She is on Soma as needed. 4. Hyperlipidemia. Continue gemfibrozil. 5. Anxiety disorder. Continue alprazolam p.r.n. 6. Insomnia. Continue Ambien p.r.n. 7. Previous history of breast cancer, status post chemotherapy and left mastectomy. 8. Prophylaxis. Continue Protonix for GI prophylaxis. Sequential compression devices to lower extremities for deep vein thrombosis prophylaxis. Subjective 24 Hr Interval Summary Free Text/Dictation complains of OLIVA and ongoing pain in her right arm. Exam/Review of Systems Vital Signs Vitals Vital Signs Date Time Temp Pulse Resp B/P Pulse Ox O2 Delivery O2 Flow Rate FiO2 04/24/16 08:00 105 04/23/16 21:28 98.3 18 118/58 93 Room Air 04/22/16 20:37 2 Intake and Output 04/23/16 04/23/16 04/24/16 15:00 23:00 07:00 Intake Total 550 ml Balance 550 ml Exam Constitutional: alert, oriented Psych: no complaints Head: normocephalic Eyes: nl conjunctiva ENMT: nl external ears & nose, other (right facial droop: mild) Neck: supple Respiratory: clear to auscultation Cardiovascular: regular rate and rhythm Gastrointestinal: soft Musculoskeletal: nl extremities to inspection Extremities: normal pulses Neurological: nl mental status, nl speech, other (right upper extremity 4/5) Results Result Diagram: 04/23/16 0718 04/23/16 0718 Medications Medications Current Medications Sodium Chloride (1/2 NS) 1,000 ml @ 100 mls/hr Q10H IV Last administered on 09:07; Admin Dose 100 MLS/HR; Start 04/22/16 at 22:29 Ondansetron HCl (Zofran Inj) 4 mg Q6H PRN IV NAUSEA AND/OR VOMITING; Start 04/22 at 22:30 Aspirin (Aspirin) 81 mg DAILY PO Last administered on 04/24/16 08:37; Admin Dose 81 MG; Start 04/23/16 at 09:00 Acetaminophen (Tylenol Tab) 650 mg Q6H PRN PO PAIN LEVEL 1-3 OR FEVER Last administered on 04/23/16 16:55; Admin Dose 650 MG; Start 04/22/16 at 22:30 Pantoprazole (Protonix Tab) 40 mg DAILY@06 PO Last administered on 04/24/16 06: 53; Admin Dose 40 MG; Start 04/23/16 at 06:00 Zolpidem Tartrate (Ambien) 5 mg HS PRN PO INSOMNIA Last administered on 21:03; Admin Dose 5 MG; Start 04/23/16 at 00:30 Magnesium Hydroxide (Milk Of Mag) 30 ml Q6H PRN PO CONSTIPATION Last administered on 04/24/16 08:37; Admin Dose 30 ML; Start 3/4/17 at 00:30 Hydromorphone HCl (Dilaudid) 1 mg Q6H PRN IV PAIN Last administered on 06:58; Admin Dose 1 MG; Start 04/23/16 at 00:30 Gabapentin (Neurontin) 300 mg BID PO Last administered on 04/24/16 08:37; Admin Dose 300 MG; Start 04/23/16 at 01:00 LORNA CRUZ MD Apr 24, 2016 10:10
[2016-04-24] MEDS: DEXAMETHASONE 4 MG/ML 1 ML INJ IV SCH ×2 (12:16→17:28)
--- NOTE | 2016-04-24 13:11 | RADRPT ---
Echocardiogram Report Patient Name: ADRIÁN CHU Gender: Female Date: 1955 Study Date: 23-Apr-2016 Crown Ironer: ROGER Location: E Ref. Physician: LORNA CRUZ Quality: Adequate Procedures: Transthoracic echocardiogram with complete 2D, M-Mode, and Doppler examination. Indications: Cerebrovascular Accident. 2D/M Mode Doppler Measurement Value Normal Ranges Measurement Value Normal Ranges AoR Diam MM 3.1 cm AV Peak Jose 1.3 m/sec ACS MM 1.8 cm AV Peak PG 7.1 mmHg LVIDd 2D 3.8 3.5 - 5.6 cm LVOT Peak Jose 1.0 m/sec LVIDs 2D 2.0 2.1 - 4.1 cm LVOT Peak PG 4.3 mmHg LVPWd 2D 0.9 0.6 - 1.1 cm MV E Peak Jose 0.7 m/sec IVSd 2D 1.0 0.6 - 1.1 cm MV A Peak Jose 0.8 m/sec EDV 2D 61.3 cm3 MV E/A 0.8 ESV 2D 8.1 cm3 MV Decel Time 244 msec LA Dimen 2D 3.2 2.3 - 4.0 cm MV Decel [place] 3 MV E/A 0.8 PV Peak Jose 1.0 m/sec PV Peak PG 4.0 mmHg Findings Left Ventricle: Normal left ventricular systolic function. Normal left ventricular cavity size. Normal left ventricular wall thickness. Ejection fraction is visually estimated at 65 %. Tissue Doppler/Mitral Doppler indices are consistent with impaired relaxation (Stage I diastolic dysfunction). Right Ventricle: Normal right ventricular size. Normal right ventricular systolic function. Left Atrium: The left atrium is normal in size. Right Atrium: The right atrium is normal in size. Mitral Valve: Normal appearance and function of the mitral valve with trace physiologic regurgitation. Aortic Valve: Normal appearance of the aortic valve. No significant aortic stenosis or insufficiency. Tricuspid Valve: Normal appearance and function of the tricuspid valve with trace physiologic regurgitation. Pulmonic Valve: Normal pulmonic valve appearance. No evidence of pulmonic regurgitation. Pericardium: Normal pericardium with no significant pericardial effusion. Aorta: Normal aortic root. IVC: Normal size and normal respiratory collapse consistent with normal right atrial pressure. Pulmonary Artery: Normal pulmonary artery size. Conclusions 1.Normal left ventricular systolic function. Normal left ventricular cavity size. Normal left ventricular wall thickness. Ejection fraction is visually estimated at 65 %. Tissue Doppler/Mitral Doppler indices are consistent with impaired relaxation (Stage I diastolic dysfunction). 2.Normal right ventricular size. Normal right ventricular systolic function. 3.The left atrium is normal in size. 4.The right atrium is normal in size. 5.No significant valvular stenosis or regurgitation seen. 6.Normal pericardium with no significant pericardial effusion. Electronically Signed By: Esdras Garrison 24-Apr-2016 13:10: Patient Name: ADRIÁN CHU Study Date: 23-Apr-2016 [id number]
--- NOTE | 2016-04-24 17:12 | RADRPT ---
PROCEDURE: MRA brain without and with contrast CLINICAL INDICATION: CVA TECHNIQUE: Intracranial MRA was performed on a 3.0T scanner before and after administration of 10 ml Magnevist intravenous contrast. Rotational MIP images were reformatted. The source images were al so reviewed. COMPARISON: None available FINDINGS: The bilateral internal carotid arteries, and the bilateral middle and anterior cerebral arteries are patent. The bilateral vertebral arteries, basilar artery, as well as the bilateral posterior cereb ral arteries are patent. There is a origin of the right posterior cerebral artery. No aneury sm or vascular malformation is identified. IMPRESSION: Unremarkable MRA of the brain. RPTAT: EE .Orville Loja MD, MD Date Time Electronically viewed and signed by .Orville Loja MD, on 04/24/2016 17:12 .O/
[2016-04-24] MEDS ORDERED: HYDROmorphONE 2 MG/ML SYG IV PRN (20:13)
[2016-04-24] MEDS: HYDROmorphONE 2 MG/ML SYG IV PRN (20:35)
[2016-04-24] MEDS: ZOLPIDEM 5 MG TAB PO PRN (20:36)
[2016-04-25] VITALS (10 sets, daily range): BP systolic 115–122; BP diastolic 58–63; PULSE 75–101; RESP 19–20
[2016-04-25] MEDS: DEXAMETHASONE 4 MG/ML 1 ML INJ IV SCH ×2 (00:15→05:55)
--- NOTE | 2016-04-25 01:03 | CONS ---
DATE OF ADMISSION: 04/22/2016 DATE OF CONSULTATION: REFERRING PHYSICIAN: Dr. Zambrano. Thank you for asking me to see the patient with you. HISTORY OF PRESENT ILLNESS: The patient is a 60-year-old lady who was admitted to [facility] with twisting of her mouth and right upper extremity numbness for which I got a call abo ut her. MRI of her brain is done, which is within normal limits as well as MRA. Cervical MRI shows moderate to severe central artery stenosis at the anterior-posterior dimension, measures around 5 m m with severe bilateral foraminal stenosis with a disk at C4-C5. CURRENT MEDICATIONS: Include: 1. Soma 350 mg twice a day. 2. Gemfibrozil 600 mg twice a day. 3. Xanax 0.5 mg twice a day. 4. Diclofenac 75 mg once a day. 5. Ibuprofen 800 mg as needed. 6. Ambien 10 mg once at bedtime. 7. Protonix 40 mg once a day. PHYSICAL EXAMINATION: GENERAL: Today, the patient is alert, awake, oriented to time, place, and person. Normal speech an d normal language. CRANIAL NERVES: Cranial nerve II: Pupils equal both sides, reactive to light. Cranial nerves III, IV and : Extraocular muscles intact. No nystagmus. Cranial nerve V: Equal sensation to face. Cranial nerve VII: Symmetrical face. Cranial nerve VIII: Decreased hearing bilaterally. Cranial nerves IX and X: Elevates palate. Cranial nerve XI: Elevates shoulder . Cranial nerve XII: Straight tongue. MOTOR: Decreased right hand crane chaser, 4+/5. Sensation decreased for glove and sock area for light touc h and temperature. COORDINATION: [id number]-[id number] test intact. HEART: Regular rate and rhythm. LUNGS: Equal breath sounds. ABDOMEN: Soft, relaxed, nondistended. No tenderness. ASSESSMENT AND PLAN: 1. The patient is 60 years old with cervical radiculopathy at C5-C6 with bilateral foraminal stenos is for which I am going to call the neurosurgeon for more evaluation and treatment. However, the ce rvical stenosis does not explain the slurred speech the patient is having and twisting of her mouth, which could be secondary to a TIA, for which I consider the patient to start on aspirin 81 mg after evaluation of the surgeon. If she does not have surgery, we can start the aspirin right away. If s he were to have surgery, we can hold it until the surgery is done to avoid any delay for surgical in terference at this point. 2. History of anxiety. Give the patient Xanax 0.5 mg twice a day. 3. History of dyslipidemia. Give the patient gemfibrozil 600 mg twice a day 4. History of insomnia. Give the patient Ambien once at night. Again, thank you for asking me to see the patient with you. Dictated By: JOS STEELE/NTS Conf#: [id number] DID#: [id number]
[2016-04-25] MEDS: HYDROmorphONE 2 MG/ML SYG IV PRN ×3 (02:34→16:09)
[2016-04-25] MEDS: PANTOPRAZOLE (EC) 40 MG TAB PO SCH (05:55)
[2016-04-25] MEDS ORDERED: VITAMIN A & D 5 GM OINT PACKET TOP ONE (06:25)
[2016-04-25] MEDS: MAGNESIUM HYDROXIDE 30ML CUP PO PRN ×2 (06:27→12:30)
[2016-04-25 07:52] LABS: ADD SCAN DIFF NO
[2016-04-25 07:55] LABS: BASOPHILS % 0.1 % (0.0-2.0); HEMATOCRIT 39.3 % (37.0-47.0); HEMOGLOBIN 12.4 g/dl (12.0-16.0); LYMPHOCYTES # 0.6 10^3/ul (0.8-2.9); LYMPHOCYTES % 8.7 % (15.0-51.0); MEAN CORPUSCULAR HGB CONC 31.6 g/dl (32.0-37.0); MEAN CORPUSCULAR VOLUME 88.7 fl (82.0-101.0); MEAN PLATELET VOLUME 10.4 fl (7.4-10.4); MONOCYTE # 0.1 10^3/ul (0.3-0.9); MONOCYTES % 1.2 % (0.0-11.0); NEUTROPHIL # 6.5 10^3/ul (1.6-7.5); NEUTROPHILS % 89.4 % (39.0-77.0); PLATELET COUNT 352 10^3/UL (140-415); RED BLOOD COUNT 4.43 10^6/ul (4.20-5.40); RED CELL DISTRIBUTION WIDTH 13.8 % (11.5-14.5); WHITE BLOOD COUNT 7.2 10^3/ul (4.8-10.8)
[2016-04-25] MEDS: GABAPENTIN 300 MG CAP PO SCH ×2 (09:04→22:11)
[2016-04-25] MEDS: ASPIRIN 81 MG TAB PO SCH (09:04)
[2016-04-25] MEDS ORDERED: DEXAMETHASONE 4 MG TAB PO SCH (12:00)
--- NOTE | 2016-04-25 12:43 | CONS ---
DATE OF ADMISSION: 04/22/2016 DATE OF CONSULTATION: 04/25/2016 REQUESTING PHYSICIAN: Juan Manuel Valverde MD CONSULTING SERVICE: Neurosurgery. HISTORY OF PRESENT ILLNESS: This is a 60-year-old female with past medical history significant for asthma/reactive airway disease, insomnia and history of breast cancer status post lumpectomy in 2009 , status post chemotherapy who is in remission. The patient was admitted for acute onset right-side d facial droop as well as acute right upper extremity pain and numbness. The patient says that appr oximately 8 months ago she had one fall at a hotel when she was with family members because she felt that her balance was good. However, since then the patient's balance and coordination has been rela tively good up until about 3 to 4 weeks ago. The patient who is right-handed, says that she has not iced sensation in her right upper extremity to be decreased when compared to the left side and for h er to be not as coordinated on the right side as the left side. The patient is walking also seems t o be less coordinated now than it was 2 to 3 months ago. The patient has also had chronic with neck pain with the neck pain having increased over the past month. The patient also has some radiating pain and numbness to her entire right upper extremity. The patient apparently did not notice the ri ght-sided facial droop until the family member pointed out to her several days ago. The patient has not had any loss of consciousness or seizures. She does not have diplopia. PAST MEDICAL HISTORY: As noted above. PAST SURGICAL HISTORY: Status post left mastectomy in 2009 for treatment of breast cancer. ALLERGIES: ALLERGIC TO MORPHINE? REVIEW OF SYSTEMS: Please see the above for positive pertinents and negatives. The patient has rn chronic darrius fatigue and she is not able to explain her fatigue. MEDICATION: The patient's medications have been reviewed in the chart. SOCIAL HISTORY: The patient lives by herself. She denies smoking tobacco. She denies use of alcoh olic beverages. She denies use of illicit or recreational drugs. PHYSICAL EXAMINATION: The patient is seen at bedside. The patient seems to be awake and alert, but dozes off as she is talking to me, and requires prompting to keep her awake. She tells me that she constantly feels like she is getting fatigued and she does not have the same energy as she did befo re. The patient is alert and oriented x4. Her language is fluent. The patient has lower right fac ial droop. Her right upper face is completely symmetric. Extraocular movements are intact. Pupils are equally round and reactive to light. Tongue is midline. The palate elevates symmetrically. M uscle bulk and tone seems to be normal bilateral upper and lower extremities. Deep tendon reflexes are 2+ bilateral upper and lower extremities. There is no Harden sign. Toes are downgoing bilater ally. Motor strength in the left upper extremity proximally and distally is 5/5 that was in the lef t upper and lower extremity. Motor strength in the right upper extremity proximally and distally is 5-/5 motor strength in the right lower extremity is also 5-/5 proximally and distally. Some of the motor examination of the right upper extremity is also limited secondary to overall right upper ext remity tenderness and neck pain. The patient has moderate to severe tenderness involving the entire posterior cervical region. Cervical flexion, extension is limited by at least 50% secondary to rhonda n. Cervical rotation to the left and right is also limited by at least 50% secondary to pain. Cerv ical rotation to the right and left also limited by at least 50% secondary to pain. Gait testing salinas s been deferred per patient request. IMAGING: The patient has received MRI of the cervical spine as well as an MRI of the brain and MRA of the brain. The MRI of the brain and the MRA do not show any evidence of an acute stroke. There is some mild cerebral atrophy. There is no obvious lesion of the facial nerve. There is also no ev idence as mentioned again of an acute stroke. There is no intracranial mass lesion. There is no mi dline shift. There is no hydrocephalus. The MRI of the cervical spine without contrast shows loss of normal cervical lordosis. There is evidence of multilevel degenerative disease of the cervical s pine. There is disk height loss, mainly at C4-5 and C5-6 and to a lesser degree at the C6-7 levels. There are posterior disk osteophyte complexes that cause moderate to severe central stenosis, mainl y at C5-6 and some compression of the spinal cord to a mild to moderate degree over the lateral rece ss areas at C4-5. The patient also has some evidence of foraminal stenosis, severely at the left C4 -5 and to a lesser degree at right C4-C5 as well as at least moderate level foraminal stenosis at C5 -C6 levels bilaterally. ASSESSMENT AND PLAN: This is an elderly female with past medical history noted above who has right lower facial droopiness not explained by MRI findings of the brain as there is no evidence of an acu te stroke on the diffusion weighted imaging studies. The patient's clinical examination also does n ot allude to peripheral nerve lesion of cranial nerve VII, as the patient's upper face does not seem to be affected by the droopiness of the face. The fact that the patient is also having a lot of fa tiguing and lowered energy cannot be explained by the MRI findings of the patient's brain and the ce rvical spine. However, the patient's decreased strength involving the right upper and lower extremi ty as well as her reported numbness and clumsiness of her upper and lower extremities can be explain ed by the cervical stenosis causing cervical myelopathy and radiculopathy. As I have explained to yesika avendano patient thankfully, she does not have severe sensory motor loss at this point and therefore acute surgical intervention that would include cervical decompression and stabilization does not need to be done right away. The operation would involve C5-C6 and possible C4-C5 anterior cervical diskect dalia and fusion and probable posterior C4-C5 and C6 laminectomy and posterior instrumented fusion; ho wever, what still needs to be further worked up is the cause of the patient's facial droop. In tom tion, the patient's lack of energy and the fact that the patient tells me that she is constantly sle epy during the day needs to be further worked up. Possible causes could involve hormonal imbalance or sleep apnea. The patient can be discharged from a neurosurgical perspective in regards to her ce rvical stenosis and treated with a Medrol Dosepak. The patient can follow up with me in clinic in [facility] next 1 to 2 weeks to further assess the patient to see if she has improved. If the patient seems to be sensory motor vance improved, then surgical intervention for her neck can be postponed for now . However, if the patient is not improving or she seems to be further declining then she will need neurosurgical intervention for the cervical spine to be done. I also cautioned the patient on over extension of her cervical spine that this could cause further injury to her cervical spine. She is to also avoid any further falls that this could also further injure the patient's cervical spine. I n regards to the patient's facial droop, this needs to be further worked up by neurology. If there i s a need the patient can be started on antiplatelet treatment for stroke prophylaxis. I will also b e discussing this with Dr. Zimmer, the patient's admitting physician. Dictated By: SOHAM NICOLE MD, SA/TAYLOR Conf#: [id number] DID#: [id number]
--- NOTE | 2016-04-25 14:09 | RADRPT ---
Vent Rate: 74 bpm RR Interval: 0 msec NM Interval: 172 msec QRS Duration: 80 msec QT Interval: 382 msec QTC Interval: 424 msec P-R-T [place]: 44 - 63 - 65 degrees Normal sinus rhythm Nonspecific T wave abnormality Abnormal ECG Electronically Signed By: Shaan Allen [id number]
--- NOTE | 2016-04-25 14:09 | PN ---
Date/Time of Note Date/Time of Note DATE: 04/25/16 TIME: 13:52 Assessment/Plan VTE Prophylaxis VTE Prophylaxis Intervention: SCD's Lines/Catheters IV Catheter Type (from Nrs): Saline Lock Urinary Cath still in place: No Assessment/Plan Assessment/Plan 60-year-old female with: 1. Right upper extremity weakness, with pain. Cervical spine cervical spine with moderate to severe central stenosis, mainly at C5-6 and some compression of the spinal cord to a mild to moderate degree over the lateral recess areas at C4-5. The patient also has some evidence of foraminal stenosis, severely at the left C4-5 and to a lesser degree at right C4 -C5 as well as at least moderate level foraminal stenosis at C5-C6 levels bilaterally. Appreciate recommendations from Dr Lal today D/c to SNF with Medrol dose pack and follow up with Dr Lal in 2 weeks Referral to Neurology outpatient SUBHASH re right facial droop of unclear etiology , continue ASA for now 2. Asthma, reactive airway disease. Her chest x-ray is within normal. Respiratory status is stable. We will continue to monitor. 3. Chronic pain. She is on Soma as needed. 4. Hyperlipidemia. Continue gemfibrozil. 5. Anxiety disorder. Continue alprazolam p.r.n. 6. Insomnia. Continue Ambien p.r.n. 7. Previous history of breast cancer, status post chemotherapy and left mastectomy. Prophylaxis. Continue Protonix for GI prophylaxis. Sequential compression devices to lower extremities for deep vein thrombosis prophylaxis. DISPOSITION: D/c SNF today when bed available with outpatient Neurology and Neurosurgery. Subjective 24 Hr Interval Summary Free Text/Dictation Patient remains stable but per PT and patient wants to go to SNF for PT, Appreciate Neurology and Neurosurgery recommendations, will need follow up with both D/c to SNF today Exam/Review of Systems Vital Signs Vitals Vital Signs Date Time Temp Pulse Resp B/P Pulse Ox O2 Delivery O2 Flow Rate FiO2 04/25/16 13:17 86 04/25/16 12:20 99.1 20 122/63 93 04/23/16 21:28 Room Air 04/22/16 20:37 2 Intake and Output 04/24/16 04/24/16 04/25/16 15:00 23:00 07:00 Intake Total 600 ml Balance 600 ml Exam Constitutional: alert, oriented, well developed Respiratory: clear to auscultation, normal air movement Cardiovascular: nl pulses, regular rate and rhythm Gastrointestinal: non-tender, soft Musculoskeletal: nl extremities to inspection, nl gait and stance Extremities: normal pulses, other (no edema, clubbing or cyanosis ) Neurological: LOG INSPECTOR II-XII intact (still with ongoing right facial droop ), nl mental status, nl speech, other (mild right facial droop, mostly neuropathy RUE and generalised weakness ) Results Result Diagram: 04/25/16 0710 04/23/16 0718 Results 24 hrs Laboratory Tests Test 04/25/16 07:10 Basophils # 0.0 Basophils % 0.1 Eosinophils # 0.0 Eosinophils % 0.0 Hematocrit 39.3 Hemoglobin 12.4 Lymphocytes # 0.6 L Lymphocytes % 8.7 L Mean Corpuscular Hemoglobin 28.0 L Mean Corpuscular Hemoglobin Concent 31.6 L Mean Corpuscular Volume 88.7 Mean Platelet Volume 10.4 Monocytes # 0.1 L Monocytes % 1.2 Neutrophils # 6.5 Neutrophils % 89.4 H Nucleated Red Blood Cells # 0.0 Nucleated Red Blood Cells % 0.0 Platelet Count 352 # Red Blood Count 4.43 Red Cell Distribution Width 13.8 White Blood Count 7.2 # Medications Medications Current Medications Ondansetron HCl (Zofran Inj) 4 mg Q6H PRN IV NAUSEA AND/OR VOMITING; Start 04/22 at 22:30 Aspirin (Aspirin) 81 mg DAILY PO Last administered on 04/25/16 09:04; Admin Dose 81 MG; Start 04/23/16 at 09:00 Acetaminophen (Tylenol Tab) 650 mg Q6H PRN PO PAIN LEVEL 1-3 OR FEVER Last administered on 04/23/16 16:55; Admin Dose 650 MG; Start 04/22/16 at 22:30 Pantoprazole (Protonix Tab) 40 mg DAILY@06 PO Last administered on 04/25/16 05: 55; Admin Dose 40 MG; Start 04/23/16 at 06:00 Zolpidem Tartrate (Ambien) 5 mg HS PRN PO INSOMNIA Last administered on 20:36; Admin Dose 5 MG; Start 04/23/16 at 00:30 Magnesium Hydroxide (Milk Of Mag) 30 ml Q6H PRN PO CONSTIPATION Last administered on 04/25/16 12:30; Admin Dose 30 ML; Start 04/23/16 at 00:30 Hydromorphone HCl (Dilaudid) 1 mg Q6H PRN IV PAIN Last administered on 17:28; Admin Dose 1 MG; Start 04/23/16 at 00:30 Gabapentin (Neurontin) 300 mg BID PO Last administered on 04/25/16 09:04; Admin Dose 300 MG; Start 04/23/16 at 01:00 Hydromorphone HCl (Dilaudid) 2 mg Q6H PRN IV SEVERE PAIN LEVEL 7-10 Last administered on 04/25/16 09:04; Admin Dose 2 MG; Start 04/24/16 at 20:30 Dexamethasone (Decadron) 4 mg Q6 PO Last administered on 04/25/16 12:30; Admin Dose 4 MG; Start 04/25/16 at 12:00 MIGUEL ANGEL ALEXIS Apr 25, 2016 14:06
--- NOTE | 2016-04-25 14:10 | PDOCDIS ---
Discharge Instructions CONDITION Patient Condition: Stable HOME CARE INSTRUCTIONS: Special Diet: cardiac regular ACTIVITY: Activity Restrictions: No Restrictions FOLLOW UP/APPOINTMENTS Appointments Follow up with PCP within 1 week Follow up with Neurology outpatient SUBHASH, re right facial droop of unclear etiology, to be arranged through [facility] Follow up with Neurosurgery, Dr Lal in 2 weeks MIGUEL ANGEL ALEXIS Apr 25, 2016 14:10
[2016-04-25] MEDS ORDERED: GABA300C16 PO (14:12)
[2016-04-25] MEDS ORDERED: MED4DP PO (14:12)
[2016-04-25] MEDS ORDERED: ASPI81TA3 PO (14:30)
[2016-04-25] MEDS ORDERED: METHYLPREDNISOLONE 4 MG TAB PO SCH (15:00)
--- NOTE | 2016-04-25 21:31 | CONS ---
DATE OF ADMISSION: 04/22/2016 DATE OF CONSULTATION: REFERRING PHYSICIANS: Dr. Flannery and Dr. Alexis. Thank you for asking me to see the patient with you. HISTORY OF PRESENT ILLNESS: This is a followup note. The patient is a 60-year-old admitted to [facility] with neck pain radiate to right upper extremity, some also face weakness in which the patient had MRI with MRA over her brain reported within normal limit; however, cervical M RI shows multiple disk prolapse with foraminal stenosis bilaterally in which I consulted the patient about her status and might need to have a consult from neurosurgery, which I text messaged Dr. Cullen Lal for more evaluation and treatment. CURRENT MEDICATIONS: Include: 1. Soma 350 mg twice a day. 2. Gemfibrozil 600 mg twice a day. 3. Xanax 0.5 mg twice a day. 4. Diclofenac 75 mg twice a day. 5. Ibuprofen 800 mg as needed. 6. Ambien 10 mg once at bed time. 7. Protonix 40 mg once a day. PHYSICAL EXAMINATION: GENERAL: Today, the patient is alert, awake, oriented to time, place, and person. Having pain and the right face weakness. SENSATION: Decreased for glove and sock area for light touch and temperature. COORDINATION: [id number]-[id number] test intact. HEART: Regular rate and rhythm. LUNGS: Equal breath sounds. ABDOMEN: Soft, relaxed, nondistended. No tenderness. ASSESSMENT AND PLAN: 1. The patient is a 60-year-old with cervical radiculopathy. Awaiting neurosurgery consultation, bi mishra I called Dr. Cullen Lal for more evaluation and treatment. 2. Right face weakness with the possibility of underlying transient ischemic attack. Keep the hakan ent on aspirin 81 mg once a day. Will start it if there is no surgery scheduled. 3. History of anxiety. Keep the patient on Xanax 0.5 mg twice a day. 4. History of dyslipidemia. Keep the patient on gemfibrozil 600 mg twice a day. Counseled the pat ient about dietitian. 5. History of insomnia, with the patient on Ambien once at night. Again, thank you for asking me to see the patient with you. Dictated By: JOS STEELE/TAYLOR Conf#: [id number] DID#: [id number] CC: MIGUEL ANGEL ALEXIS MD; LORNA CRUZ MD;*[facility]*
[2016-04-25] MEDS: ZOLPIDEM 5 MG TAB PO PRN (22:11)
[2016-04-25] MEDS: HYDROmorphONE 1 MG/ML SYG IV PRN (22:15)
[2016-04-26 04:12] VITALS: BP 101/59; RESP 17
[2016-04-26] MEDS: PANTOPRAZOLE (EC) 40 MG TAB PO SCH (06:04)
[2016-04-26] MEDS ORDERED: METHYLPREDNISOLONE 4 MG TAB PO SCH ×4 (07:30→21:00)
[2016-04-26 07:31] VITALS: BP 104/56; RESP 18
[2016-04-26] MEDS: GABAPENTIN 300 MG CAP PO SCH (08:41)
[2016-04-26] MEDS: ASPIRIN 81 MG TAB PO SCH (08:41)
[2016-04-26] MEDS: HYDROmorphONE 2 MG/ML SYG IV PRN (08:47)
[2016-04-26] MEDS ORDERED: METHYLPREDNISOLONE (MEDROL) DOSE PACK PO SCH (09:00)
[2016-04-26] MEDS: MAGNESIUM HYDROXIDE 30ML CUP PO PRN (09:03)
[2016-04-26 11:42] VITALS: BP 109/59; RESP 20
--- NOTE | 2016-04-26 13:48 | PN ---
Date/Time of Note Date/Time of Note DATE: 04/26/16 TIME: 13:35 Assessment/Plan VTE Prophylaxis VTE Prophylaxis Intervention: SCD's Lines/Catheters IV Catheter Type (from Nrs): Saline Lock Urinary Cath still in place: No Assessment/Plan Assessment/Plan 60-year-old female with: 1. Right upper extremity weakness, with pain. Cervical spine cervical spine with moderate to severe central stenosis, mainly at C5-6 and some compression of the spinal cord to a mild to moderate degree over the lateral recess areas at C4-5. The patient also has some evidence of foraminal stenosis, severely at the left C4-5 and to a lesser degree at right C4 -C5 as well as at least moderate level foraminal stenosis at C5-C6 levels bilaterally. Appreciate recommendations from Dr Lal today D/c to SNF when bed available with Medrol dose pack and follow up with Dr Lal in 2 weeks Referral to Neurology outpatient SUBHASH re right facial droop of unclear etiology , continue ASA for now 2. Asthma, reactive airway disease. Her chest x-ray is within normal. Respiratory status is stable. We will continue to monitor. 3. Chronic pain. She is on Soma as needed. 4. Hyperlipidemia. Continue gemfibrozil. 5. Anxiety disorder. Continue alprazolam p.r.n. 6. Insomnia. Continue Ambien p.r.n. 7. Previous history of breast cancer, status post chemotherapy and left mastectomy. Prophylaxis. Continue Protonix for GI prophylaxis. Sequential compression devices to lower extremities for deep vein thrombosis prophylaxis. DISPOSITION: D/c SNF when bed available with outpatient Neurology and Neurosurgery follow up. Subjective 24 Hr Interval Summary Free Text/Dictation Patient feels OK No New symptoms on Medrol dose pack now Awaiting SNF bed for placement Exam/Review of Systems Vital Signs Vitals Vital Signs Date Time Temp Pulse Resp B/P Pulse Ox O2 Delivery O2 Flow Rate FiO2 04/26/16 11:42 98.1 70 20 109/59 94 04/23/16 21:28 Room Air 04/22/16 20:37 2 Intake and Output 04/25/16 04/25/16 04/26/16 15:00 23:00 07:00 Intake Total 1440 ml Balance 1440 ml Exam Constitutional: alert, oriented, other (right facial droop seems to be better today ), well developed Respiratory: clear to auscultation, normal air movement Cardiovascular: nl pulses, regular rate and rhythm Gastrointestinal: nl liver, spleen, non-tender, soft Musculoskeletal: nl extremities to inspection Extremities: normal pulses, other (no edema, clubbing or cyanosis ) Neurological: TIRE RETREADER II-XII intact, nl mental status, nl speech, nl strength, other (claims weakness ) Results Result Diagram: 04/25/16 0710 04/23/16 0718 Medications Medications Current Medications Ondansetron HCl (Zofran Inj) 4 mg Q6H PRN IV NAUSEA AND/OR VOMITING; Start 04/22 at 22:30 Aspirin (Aspirin) 81 mg DAILY PO Last administered on 04/26/16 08:41; Admin Dose 81 MG; Start 04/23/16 at 09:00 Acetaminophen (Tylenol Tab) 650 mg Q6H PRN PO PAIN LEVEL 1-3 OR FEVER Last administered on 04/23/16 16:55; Admin Dose 650 MG; Start 04/22/16 at 22:30 Pantoprazole (Protonix Tab) 40 mg DAILY@06 PO Last administered on 04/26/16 06: 04; Admin Dose 40 MG; Start 04/23/16 at 06:00 Zolpidem Tartrate (Ambien) 5 mg HS PRN PO INSOMNIA Last administered on 22:11; Admin Dose 5 MG; Start 04/23/16 at 00:30 Magnesium Hydroxide (Milk Of Mag) 30 ml Q6H PRN PO CONSTIPATION Last administered on 04/26/16 09:03; Admin Dose 30 ML; Start 04/23/16 at 00:30 Hydromorphone HCl (Dilaudid) 1 mg Q6H PRN IV PAIN Last administered on 22:15; Admin Dose 1 MG; Start 04/23/16 at 00:30 Gabapentin (Neurontin) 300 mg BID PO Last administered on 04/26/16 08:41; Admin Dose 300 MG; Start 04/23/16 at 01:00 Hydromorphone HCl (Dilaudid) 2 mg Q6H PRN IV SEVERE PAIN LEVEL 7-10 Last administered on 04/26/16 08:47; Admin Dose 2 MG; Start 04/24/16 at 20:30 Methylprednisolone (Medrol) 8 mg HS PO ; Start 04/26/16 at 21:00; Stop 04/26/16 at 21:01 Methylprednisolone (Medrol) 4 mg HS PO ; Start 04/27/16 at 21:00; Stop 04/29/16 at 21:01 MIGUEL ANGEL ALEXIS Apr 26, 2016 13:47
[2016-04-26] MEDS ORDERED: HYDROCODONE/APAP (5/325) TAB PO PRN (14:30)
[2016-04-26 16:00] VITALS: BP 116/58; RESP 18
[2016-04-26] MEDS: HYDROCODONE/APAP (5/325) TAB PO PRN ×2 (16:09→19:46)
[2016-04-26 18:00] VITALS: BP 180/86; PULSE 105; RESP 18
[2016-04-27] MEDS ORDERED: METHYLPREDNISOLONE 4 MG TAB PO SCH (21:00)
== END 2016-04-26 21:00 | DRG 552 ==
LOC: E/R 17:46 → INTOOBSV 21:26 → MS4 21:26 → OBSVTOIN 04-24 08:44 → MS4 04-24 16:42
PROVIDERS: ADMIT Internal Medicine; ATTEND Internal Medicine
DX: M50.021 Cervical disc disorder at C4-C5 level with myelopathy (principal); M48.02 Spinal stenosis, cervical region; M50.121 Cervical disc disorder at C4-C5 level with radiculopathy; J45.909 Unspecified asthma, uncomplicated; G89.29 Other chronic pain; E78.5 Hyperlipidemia, unspecified; F41.9 Anxiety disorder, unspecified; G47.00 Insomnia, unspecified; Z85.3 Personal history of malignant neoplasm of breast; Z92.21 Personal history of antineoplastic chemotherapy; Z90.12 Acquired absence of left breast and nipple
CPT/HCPCS: 70450; 70546; 70551; 71010; 72141; 80048; 80053; 80061; 80307; 81001; 81003; 82962; 83036; 83735; 84443; 84484; 85025; 85610; 85730; 92526; 92610; 93005; 93306; 96374; 96375; 99217; G0378; J1100; J1170; J2405; J7509

== ENCOUNTER 2016-04-26 22:57 | Emergency (ER) | payer SELFPAY ==
[~2016-04-26 22:57] MED LIST changes: +ALPR0.5T6 PO; +ASPI81TA3 PO; +DICL75TA2 PO; -FLUT16SP17 NASAL; +GABA300C16 PO; -HYDR-902 PO; -HYDR-906 PO; -LEVO750T25 PO; +MED4DP PO; -NITR-58 PO; -PRED20 PO; +ZOLP10TA5 PO
--- NOTE | 2016-04-26 23:02 | ERD ---
ER Documentation Chief Complaint Date/Time DATE: 04/26/16 TIME: 23:00 Chief Complaint HPI This is a 60-year-old female who was discharged earlier today from the floor. Patient complained of headache. She was sent back to the ER without the ER was notification. Upon arrival with the patient states that she wants to go home. Patient says she will call a taxi to go home. Patient is alert and oriented 4 with goal oriented speech and good decision-making capacity. Patient has decided to elope prior to full treatment and evaluation ROS All systems reviewed and are negative except as per history of present illness. Medications Home Meds Active Scripts Aspirin (Aspirin) 81 Mg Chew, 81 MG PO DAILY for 30 Days, TAB 3 Refills Prov:MIGUEL ANGEL ALEXIS 04/25/16 Methylprednisolone* (Medrol* DOSE PACK) 4 Mg/Dose-Pack Tab.ds.pk, 4 MG PO . DIRECTED, #1 PACKET Prov:VANESAMIGUEL ANGEL Birch 04/25/16 Gabapentin* (Gabapentin*) 300 Mg Capsule, 300 MG PO BID for 30 Days, CAP 3 Refills Prov:VANESAMIGUEL ANGEL iBrch 04/25/16 Pantoprazole* (Pantoprazole*) 40 Mg Tablet.dr, 40 MG PO DAILY@06 for 30 Days, 3 Refills Prov:MIGUEL ANGEL ALEXIS 02/12/16 Reported Medications Alprazolam* (Alprazolam*) 0.5 Mg Tablet, 0.5 MG PO BID Y for ANXIETY, TAB 04/22/16 Zolpidem Tartrate* (Zolpidem Tartrate*) 10 Mg Tablet, 10 MG PO QHS Y for INSOMNIA, #30 TAB 04/22/16 Diclofenac Sodium* (Diclofenac Sodium*) 75 Mg Tablet.dr, 75 MG PO Q12, #60 TAB 04/22/16 Ibuprofen* (Ibuprofen*) 800 Mg Tab, 800 MG PO Q6H Y for PAIN, TAB 04/22/16 Carisoprodol* (Carisoprodol*) 350 Mg Tablet, 350 MG PO BID Y for MUSCLE SPASMS, TAB 02/10/16 Gemfibrozil* (Gemfibrozil*) 600 Mg Tablet, 600 MG PO BID, TAB 12/11/15 Discontinued Reported Medications Hydrocodone/Acetaminophen ([place] 10-325 Tablet) 1 Each Tablet, 1 EACH PO Q6 Y for PAIN, TAB 02/10/16 Discontinued Scripts Nitrofurantoin Monohyd Macrocr* (Macrobid*) 100 Mg Capsr, 100 MG PO BID for 5 Days, CAP Prov:LAUREN ALANIZClari REYNA 03/26/16 Ibuprofen* (Motrin*) 800 Mg Tab, 800 MG PO Q6, #15 TAB Prov:LAUREN ALANIZClari REYNA 03/26/16 Hydrocodone/Acetaminophen ([place]coll 5-325 Tablet) 1 Each Tablet, 1 TAB PO Q6H Y for PAIN, #7 TAB Prov:LAUREN ALANIZClari REYNA 03/26/16 Levofloxacin* (Levaquin*) 750 Mg Tablet, 750 MG PO DAILY for 5 Days, TAB Prov:VANESAAlizeFLOYD Birch 02/12/16 Prednisone (Prednisone) 20 Mg Tab, 40 MG PO DAILY for 7 Days, TAB Prov:VANESAShabnamHamiltonFLOYD 02/12/16 Fluticasone Propionate* (Fluticasone Propionate* Nasal) 50 Mcg/[place] - 16 Gm [place].susp, 1 SPRAY NASAL BID, #1 BOTTLE 2 Refills Prov:Alize ALEXISRANDEEEVA 02/12/16 Allergies Allergies: Coded Allergies: morphine (Verified Allergy, Mild, rash, 04/22/16) PMhx/Soc History of Surgery: Yes (Left Masectomy 2009) Anesthesia Reaction: No Hx Neurological Disorder: No Hx Respiratory Disorders: Yes (Asthma) Hx Cardiac Disorders: No Hx Psychiatric Problems: No Hx Miscellaneous Medical Probl: Yes (astham, reactiev aorway, L mastectomy, chemo) Hx Alcohol Use: No Hx Substance Use: No Hx Tobacco Use: No Physical Exam Physical Exam Const: [] Head: Atraumatic Eyes: Normal Conjunctiva ENT: Normal External Ears, Nose and Mouth. Neck: Full range of motion..~ No meningismus. Resp: Clear to auscultation bilaterally Cardio: Regular rate and rhythm, no murmurs Abd: Soft, non tender, non distended. Normal bowel sounds Skin: No petechiae or rashes Back: No midline or flank tenderness Ext: No cyanosis, or edema Neur: Awake and alert Psych: Normal Mood and Affect Procedures/MDM This is a very pleasant patient who has a headache. At this point she has decided to elope. Patient is alert and oriented 4 with goal oriented speech and good decision-making capacity with ability to negotiate the community. Departure Diagnosis: Primary Impression: Headache Headache type: unspecified Headache chronicity pattern: unspecified pattern Intractability: not intractable Qualified Code: R51 - Nonintractable headache, unspecified chronicity pattern, unspecified headache type NOHEMI SIFUENTES Apr 26, 2016 23:02
--- NOTE | 2016-04-27 04:05 | CONS ---
DATE OF ADMISSION: 04/26/2016 DATE OF CONSULTATION: REFERRING PHYSICIAN: Dr. Zambrano and Dr. Zimmer Thank you for asking me to see the patient. HISTORY OF PRESENT ILLNESS: The patient is a 60-year-old lady with cervical radiculopathy with bila teral foraminal stenosis which affects her arm for which we [facility] the [facility] and contacted Dr. Cullen Lal; however, the patient is willing to have conservative treatment r ather than surgical interference. CURRENT MEDICATIONS: Include 1. Soma 350 mg twice a day. 2. Gemfibrozil 600 mg twice a day. 3. Xanax 0.5 mg twice a day. 4. Diclofenac 75 mg twice a day. 5. Ibuprofen 800 mg as needed. 6. Ambien 10 mg once at bedtime. 7. Protonix 40 mg once a day. PHYSICAL EXAMINATION: GENERAL: The patient is alert, awake, oriented to time, place, and person. Normal speech and beny l language. CRANIAL NERVE EXAMINATION: Cranial nerves II: Pupils equal on both sides and reactive to light. C ranial nerves III, IV, and : Extraocular muscles intact. Cranial nerves V: Equal sensation to f aracelis. Cranial nerve VII: Symmetrical face. Cranial nerve VIII: Decreased hearing bilaterally. Cr lindsay nerve X: Elevates palate. Cranial nerve XI: Elevates shoulder, 5/5, straight tongue. Motor examination: Right upper extremity is 4+/5, sensation decreased for glove and sock area for light t ouch and temperature. Coordination: Bqllru-wa-wxdz was intact. HEART: Regular rate and rhythm. LUNGS: Equal breath sounds. ABDOMEN: Soft, relaxed, nondistended, no tenderness. ASSESSMENT AND PLAN: 1. The patient is a 60-year-old with underlying cervical radiculopathy. We might follow up the pat ient with physical therapy and rehab for acute rehab. 2. Cervical radiculopathy with bilateral foraminal stenosis for which Dr. Cullen Lal alert for the patient; however, the patient is not in favor of surgery, and we started her on Medrol back dose fo r now and see how the patient responds to that. 3. Underlying transient ischemic attack. Keep the patient on aspirin 81 mg. 4. History of anxiety. Keep the patient on Xanax 0.5 mg twice a day. 5. History of dyslipidemia. Keep the patient on gemfibrozil 600 mg twice a day. 6. History of insomnia. Keep the patient on Ambien once at night. Again, thank you for asking me to see the patient with you. Dictated By: JOS STEELE/TAYLOR Conf#: [id number] DID#: [id number]
== END 2016-04-26 23:00 | disposition left against medical advice (07) ==
LOC: E/R 22:57
DX: R51 Headache (principal); J45.909 Unspecified asthma, uncomplicated; Z79.82 Long term (current) use of aspirin
CPT/HCPCS: 99284

== ENCOUNTER 2016-05-11 18:46 | Emergency (ER) | payer OTHER ==
[~2016-05-11] VITALS: Ht 160 cm; Wt 79.0 kg
[2016-05-11 19:30] VITALS: Ht 160 cm; Wt 79.0 kg
--- NOTE | 2016-05-12 00:31 | RADRPT ---
PROCEDURE: Portable chest x-ray. CLINICAL INDICATION: Stroke. TECHNIQUE: Portable AP view of the chest. COMPARISON: 04/22/2016. FINDINGS: No pulmonary edema or conolidation is identified. The cardiac silhouette is magnified. No pleural effusion is seen. There is no pneumothorax. Multiple surgical clips project over the left axillary region. IMPRESSION: 1. No evidence of acute cardiopulmonary disease. RPTAT: HTAR .Wilton Hernandez MD, MD Date Time Electronically viewed and signed by .Wilton Hernandez MD, MD on 05/12/2016 00:31 .R/
--- NOTE | 2016-05-12 00:34 | RADRPT ---
PROCEDURE: Noncontrast CT Head. CLINICAL INDICATION: Pain. TECHNIQUE: Noncontrast CT of the head was obtained. The administered radiation dose was CTDI vol = 45 mGy, DLP = 720 mGy-cm. COMPARISON: 04/22/2016 FINDINGS: The ventricles and cortical sulci are mildly enlarged. There is mild decreased attenuation within t he periventricular and subcortical white matter compatible with chronic microvascular changes. There is no acute intracranial hemorrhage or extra-axial fluid collection. There is no mass effect . No midline shift is identified. There is no loss of cornejo-white differentiation to suggest acute in farction. The orbits are within normal limits. The paranasal sinuses are well aerated. No destructive osseous lesion is identified. IMPRESSION: No acute findings. Mild diffuse parenchymal volume loss and chronic microvascular changes. RPTAT: HIKT .Israel Powers MD, MD Date Time Electronically viewed and signed by .Israel Powers MD, MD on 05/12/2016 00:34 .T/
[2016-05-12 01:34] VITALS: BP 131/87; PULSE 68; RESP 16
[2016-05-12 02:15] LABS: ADD SCAN DIFF NO
[2016-05-12 02:17] LABS: BASOPHIL # 0.1 10^3/ul (0.0-0.1); BASOPHILS % 0.7 % (0.0-2.0); EOSINOPHILS # 0.2 10^3/ul (0.0-0.5); EOSINOPHILS % 3.2 % (0.0-7.0); HEMATOCRIT 40.5 % (37.0-47.0); HEMOGLOBIN 13.2 g/dl (12.0-16.0); LYMPHOCYTES # 2.1 10^3/ul (0.8-2.9); LYMPHOCYTES % 27.8 % (15.0-51.0); MEAN CORPUSCULAR HEMOGLOBIN 28.1 pg (29.0-33.0); MEAN CORPUSCULAR HGB CONC 32.6 g/dl (32.0-37.0); MEAN CORPUSCULAR VOLUME 86.2 fl (82.0-101.0); MEAN PLATELET VOLUME 10.2 fl (7.4-10.4); MONOCYTE # 0.5 10^3/ul (0.3-0.9); MONOCYTES % 6.4 % (0.0-11.0); NEUTROPHIL # 4.6 10^3/ul (1.6-7.5); NEUTROPHILS % 61.6 % (39.0-77.0); PLATELET COUNT 294 10^3/UL (140-415); RED CELL DISTRIBUTION WIDTH 14.4 % (11.5-14.5); WHITE BLOOD COUNT 7.5 10^3/ul (4.8-10.8)
[2016-05-12 02:28] LABS: INR 0.94; PROTIME 12.6 Sec (12.2-14.2)
[2016-05-12 02:29] LABS: PARTIAL THROMBOPLASTIN TIME 21.8 Sec (25.0-35.0)
[2016-05-12 02:35] LABS: CHLORIDE 106 mmol/L (97-110); POTASSIUM 3.6 mmol/L (3.5-5.1); SODIUM 146 mmol/L (135-144)
[2016-05-12 02:37] LABS: CREATININE 0.76 mg/dl (0.44-1.00)
[2016-05-12 02:38] LABS: ANION GAP 18 (8-16); BLOOD UREA NITROGEN 20 mg/dl (7-20); CARBON DIOXIDE 26 mmol/L (21-31); GLUCOSE 85 mg/dl (70-220)
[2016-05-12 02:39] LABS: CALCIUM 9.7 mg/dl (8.4-10.2)
[2016-05-12 02:53] LABS: TROPONIN-I < 0.012 ng/ml (0.00-0.12)
--- NOTE | 2016-05-12 07:52 | ERD ---
ER Documentation Chief Complaint Date/Time DATE: 05/12/16 TIME: 07:45 Chief Complaint Numbness on the right side of the face and arm with CP X3 hours HPI 60-year-old female with a history of possible recent stroke presenting with complaints of worsening symptoms for the past 2 days. She states that she was told she had a stroke when she came in several weeks ago with a right facial droop. She was evaluated and hospitalized. An MRI was done and did not show any evidence of stroke. She was also diagnosed with cervical radiculopathy and seen by a neurosurgeon and told to follow-up as an outpatient. The patient failed to follow-up with an outpatient and did not even know she was supposed to do that. She feels like her right facial droop is worse today. She has no other new symptoms, such as focal weakness or numbness. Complains of tightness and aching in her right upper extremity, which is chronic. ROS All systems reviewed and are negative except as per history of present illness. Medications Home Meds Active Scripts Aspirin (Aspirin) 81 Mg Chew, 81 MG PO DAILY for 30 Days, TAB 3 Refills Prov:MIGUEL ANGEL ALEXIS 04/25/16 Methylprednisolone* (Medrol* DOSE PACK) 4 Mg/Dose-Pack Tab.ds.pk, 4 MG PO . DIRECTED, #1 PACKET Prov:MIGUEL ANGEL ALEXIS 04/25/16 Gabapentin* (Gabapentin*) 300 Mg Capsule, 300 MG PO BID for 30 Days, CAP 3 Refills Prov:MIGUEL ANGEL ALEXIS 04/25/16 Pantoprazole* (Pantoprazole*) 40 Mg Tablet., 40 MG PO DAILY@06 for 30 Days, 3 Refills Prov:MIGUEL ANGEL ALEXIS 02/12/16 Reported Medications Alprazolam* (Alprazolam*) 0.5 Mg Tablet, 0.5 MG PO BID Y for ANXIETY, TAB 04/22/16 Zolpidem Tartrate* (Zolpidem Tartrate*) 10 Mg Tablet, 10 MG PO QHS Y for INSOMNIA, #30 TAB 04/22/16 Diclofenac Sodium* (Diclofenac Sodium*) 75 Mg Tablet.dr, 75 MG PO Q12, #60 TAB 04/22/16 Ibuprofen* (Ibuprofen*) 800 Mg Tab, 800 MG PO Q6H Y for PAIN, TAB 04/22/16 Carisoprodol* (Carisoprodol*) 350 Mg Tablet, 350 MG PO BID Y for MUSCLE SPASMS, TAB 02/10/16 Gemfibrozil* (Gemfibrozil*) 600 Mg Tablet, 600 MG PO BID, TAB 12/11/15 Allergies Allergies: Coded Allergies: morphine (Verified Allergy, Mild, rash, 04/22/16) PMhx/Soc History of Surgery: Yes (Left Masectomy 2009) Anesthesia Reaction: No Hx Neurological Disorder: No Hx Respiratory Disorders: Yes (Asthma) Hx Cardiac Disorders: No Hx Psychiatric Problems: No Hx Miscellaneous Medical Probl: Yes (asthma, reactive airway,mastectomy, chemo) Hx Alcohol Use: No Hx Substance Use: No Hx Tobacco Use: No Smoking Status: Never smoker FmHx Family History: No diabetes Physical Exam Vitals Vital Signs Date Time Temp Pulse Resp B/P Pulse Ox O2 Delivery O2 Flow Rate FiO2 05/12/16 01:34 68 16 131/87 99 Room Air 05/11/16 19:30 98.0 93 20 151/78 99 Physical Exam Const: Nontoxic, no apparent distress Head: Atraumatic Eyes: Normal Conjunctiva ENT: Normal External Ears, Nose and Mouth. Neck: Full range of motion..~ No meningismus. Right paraspinal cervical muscle tenderness to palpation. No midline tenderness. Resp: Clear to auscultation bilaterally Cardio: Regular rate and rhythm, no murmurs Abd: Soft, non tender, non distended. Normal bowel sounds Skin: No petechiae or rashes Back: No midline or flank tenderness Ext: No cyanosis, or edema Neur: Awake and alert and oriented 3, right facial droop noted sparing the forehead, normal speech, no aphasia, other cranial nerves all intact. Strength and sensations intact in all 4 extremities. Cerebellar exam normal. No pronator drift. Normal gait Psych: Normal Mood and Affect Result Diagram: 05/12/1620405/12/16204 Results 24 hrs Laboratory Tests Test 05/12/16 01:02 05/12/16 02:05 Bedside Glucose 76mg/dL White Blood Count 7.510^3/ul Red Blood Count 4.7010^6/ul Hemoglobin 13.2g/dl Hematocrit 40.5% Mean Corpuscular Volume 86.2fl Mean Corpuscular Hemoglobin 28.1pg Mean Corpuscular Hemoglobin Concent 32.6g/dl Red Cell Distribution Width 14.4% Platelet Count 28100^3/UL Mean Platelet Volume 10.2fl Neutrophils % 61.6% Lymphocytes % 27.8% Monocytes % 6.4% Eosinophils % 3.2% Basophils % 0.7% Nucleated Red Blood Cells % 0.0/100WBC Neutrophils # 4.610^3/ul Lymphocytes # 2.110^3/ul Monocytes # 0.510^3/ul Eosinophils # 0.210^3/ul Basophils # 0.110^3/ul Nucleated Red Blood Cells # 0.010^3/ul Prothrombin Time 12.6Sec Prothrombin Time Ratio 1.0 INR International Normalized Ratio 0.94 Activated Partial Thromboplast Time 21.8Sec Sodium Level 146mmol/L Potassium Level 3.6mmol/L Chloride Level 106mmol/L Carbon Dioxide Level 26mmol/L Anion Gap 18 Blood Urea Nitrogen 20mg/dl Creatinine 0.76mg/dl Glucose Level 85mg/dl Calcium Level 9.7mg/dl Troponin I < 0.012ng/ml Procedures/MDM EKG: Rate/Rhythm: Normal Sinus Rhythm QRS, ST, T-waves: No changes consistent w/ acute ischemia Impression: No evidence of ischemia or arrhythmia CT head without acute abnormalities Chest x-ray without acute abnormalities Labs are within normal limits other than mild hypernatremia I reviewed the patient's records from her last inpatient stay and discuss them with her. She was not very aware of what the findings were on her imaging from her last visit. It seems like there are no new findings on the CT today. It seems like her symptoms are chronic and there does not appear to be any new findings on exam. For her neck pain and her arm pain, I advised she follow-up with her neurosurgeon as advised in the previous visit. I gave her the information for him again, Dr. Nicole. She was discharged in a stable condition. She was advised to continue with her current medications. Return precautions were discussed. Departure Diagnosis: Primary Impression: Cervical radiculopathy Additional Impression: Facial droop Condition: Stable Patient Instructions: Effects of a Stroke on the Brain and Body, Radiculopathy , Cervical Referrals: SOHAM NICOLE MD Additional Instructions: Follow-up with Soham Nicole for your neck problems. See your regular doctor in 1- 2 days. Take all your medications as prescribed. Return for worsening symptoms. NATANAEL BOWER MD May 12, 2016 07:52
== END 2016-05-12 02:29 | disposition home or self-care (01) ==
LOC: E/R 18:46
DX: M54.12 Radiculopathy, cervical region (principal); J45.909 Unspecified asthma, uncomplicated; R40.2142 Coma scale, eyes open, spontaneous, at arrival to emergency department; R40.2252 Coma scale, best verbal response, oriented, at arrival to emergency department; R40.2362 Coma scale, best motor response, obeys commands, at arrival to emergency department; R07.9 Chest pain, unspecified; Z79.82 Long term (current) use of aspirin
CPT/HCPCS: 70450; 71010; 80048; 82962; 84484; 85025; 85610; 85730; 93005

== ENCOUNTER 2017-09-28 12:30 | Emergency (ER) | END 2017-09-28 13:40 | disposition home or self-care (01) ==